=== PATIENT | female | born 1950 | race African-American/Black ===

== ENCOUNTER 2018-01-27 11:42 | Outpatient (CLI) | payer MEDICARE, OTHER | END 2018-01-27 11:43 | disposition home or self-care (01) | LOC: BICRAD 11:42 | PROVIDERS: ATTEND Family Medicine | DX: J18.0 Bronchopneumonia, unspecified organism (principal); J98.4 Other disorders of lung | CPT/HCPCS: 71046 ==

== ENCOUNTER 2018-09-30 12:38 | Inpatient (IN) | payer MEDICARE, OTHER ==
[2018-09-30] MEDS ORDERED: Fentanyl 20 mcg/ml (100 ml CADD) IV PRN (12:56)
[2018-09-30 13:10] LABS: Hemoglobin 10.3 g/dL (12.0-16.0); Mean Corpuscular HGB CONC 30.8 g/dL (32.0-36.0); Mean Corpuscular Hemoglobin 24.9 pg (27.0-31.0); Mean Corpuscular Volume 80.9 fL (78.0-98.0); Mean Platelet Volume 8.3 fL (7.4-10.4); Platelet Count 233 thou/uL (130-400); RBC Distribution Width 15.5 % (11.5-14.5); Red Blood Cell (RBC) Count 4.16 mill/uL (4.20-5.40); White Blood Cell (WBC) Count 7.4 thou/uL (4.8-10.8)
[2018-09-30 13:15] LABS: INR-International Normal Ratio 1.1; PTT 23.4 SEC (22.9-36.1); Prothrombin Time 13.8 SEC (12.0-14.7)
[2018-09-30 13:17] LABS: Bilirubin Negative (Negative); Blood, Urine Large (Negative); Clarity CLEAR (Clear); Glucose, Urine (Dipstick) 250 mg/dL (Negative); Leukocyte Negative (Negative); Nitrite Negative (Negative); Protein, Urine (Dipstick) 100 mg/dL (Neg-Trace)
[2018-09-30 13:20] LABS: Bacteria/HPF None Seen HPF (None Seen); Hyaline Casts/LPF 0-3 HYALINE CAST LPF (0-3 Hyaline); Pathc Cast-AUWi Flag 0.14 (0-2.49); RBC/HPF 0-3 HPF (0-3); Squamous Epithelial 0-3 HPF (0-3); WBC/HPF 0-3 HPF (0-3)
[2018-09-30] MEDS ORDERED: Fentanyl 100 MCG/2 ML VIAL ONE (13:21)
[2018-09-30 13:24] LABS: D-Dimer Test 4.25 *mcg/mL (0.27-0.43)
[2018-09-30 13:28] LABS: Amphetamine Not Detected (NotDetected); Barbiturates Screen Not Detected (NotDetected); Benzodiazepine Screen Not Detected (NotDetected); Cocaine Metabolite Screen Not Detected (NotDetected); Medtox Control Line Valid? VALID (VALID); Medtox Reader # READER 4; Methadone Not Detected (NotDetected); Methamphetamine Not Detected (NotDetected); Opiate Screen Detected (NotDetected); Oxycodone Screen Not Detected (NotDetected); Phencyclidine (PCP) Not Detected (NotDetected); Renal Epithelial None Seen HPF (0-3); THC/Cannabinoid Screen Not Detected (NotDetected); Transitional Epithelial NONE SEEN HPF (0-3); Tricyclic Screen Not Detected (NotDetected)
[2018-09-30 13:29] LABS: Magnesium 1.8 mg/dL (1.6-2.6); Phosphorus 2.8 mg/dL (2.3-4.7)
[2018-09-30 13:30] LABS: Acanthocytes SLIGHT = 1-5 cells (100X) (None Seen); Anisocytosis SLIGHT = 6-15 cells (100X) (0-5/hpf); Band 4 % (5-11); Elliptocytes SLIGHT = 2-5 cells (100X) (0-1/hpf); Hypochromia SLIGHT = 6-15 cells (100X) (0-5/hpf); Lymphocytes 4 % (21-51); MDiff Complete? YES; Monocytes 2 % (0-10); Neutrophil 90 % (42-75); Platelet Morphology Comment Appears Adequate
[2018-09-30 13:30] LABS: Actual Bicarbonate (HCO3a) 23.2 mEq/L (22-28); Analyzer IN Cardio ER; Base Excess (BEa) -1.8 mEq/L (-2.0 to +3.0); CO2 Tension 40.6 mmHg (35.0-45.0); Calcium, Ionized 1.12 mmol/L (1.12-1.30); Carboxyhemoglobin (COHb) 1.4 gm% (0.0-3.0); Hemoglobin (Hb) 12.2 g/dL (12.0-16.0); Potassium - ABG Lab 3.21 mmol/L (3.70-5.30); pH, Arterial 7.38 (7.35-7.45)
[2018-09-30 13:32] LABS: ALT (SGPT) 13 U/L (8-55); AST (SGOT) 27 U/L (5-34); Albumin 4.4 g/dL (3.4-4.8); Alkaline Phosphatase 128 U/L (40-150); Anion Gap 17 mmol/L (10-20); BUN (Urea Nitrogen) 8 mg/dL (9.8-20.1); Bilirubin, Total 0.5 mg/dL (0.2-1.2); CK (CPK) 726 U/L (29-168); Calc. Creatinine Clearance 0 mL/min (70-130); Calcium 9.3 mg/dL (7.8-10.44); Carbon Dioxide 22 mmol/L (23-31); Chloride 102 mmol/L (98-107); Estimated GFR-MDRD Greater than 90; Globulin 4.4 g/dL (2.4-3.5); Glucose 186 mg/dL (80-115); Lipase 12 U/L (8-78); Potassium 3.2 mmol/L (3.5-5.1); Protein, Total 8.8 g/dL (6.0-8.3); Sodium 138 mmol/L (136-145)
[2018-09-30 13:39] LABS: Puncture Site L.R.
--- NOTE | 2018-09-30 13:39 | CT ---
CT BRAIN: Date: 09-30-18 Provided Clinical History: Unresponsive. FINDINGS: Comparison is made with the study dated 02-21-06. There is a large intraaxial hematoma centered in the region of the left basal ganglia measuring appro ximately 6.6 cm in greatest transverse dimension. There is intraventricular extension. There is about 1.1 cm of left to right shift of the midline structures. There is associated left uncal herniation. There is prominence of the ventricular system suggesting developing hydrocephalus. Diminished attenua tion within the white matter about the occipital horns of both lateral ventricles may reflect transep endymal flow of CSF or vasogenic edema. The extracranial soft tissues and osseous structures demonstrate an unremarkable CT appearance. IMPRESSION: Large left basal ganglia intraparenchymal hematoma with intraventricular extension and findings sugge sting developing hydrocephalus. Findings communicated to Dr. Rajan in the Emergency Department at 1:1 5 p.m. 09-30-18. Code CR. POS: [facility]
[2018-09-30 13:41] LABS: Acetaminophen Less than 6.0 mcg/mL (10.0-30.0); Alcohol Less than 10 mg/dL (Less than 10); Salicylate Less than 8.0 mg/dL (15.0-30.0)
[2018-09-30] MEDS ORDERED: CCU Electrolyte Replacement 1 EACH IVPB ONE (13:42)
[2018-09-30] MEDS ORDERED: Ondansetron PF 4 MG/2 ML Vial IVP PRN (13:42)
[2018-09-30] MEDS ORDERED: Bisacodyl 10 MG SUPP PR PRN (13:42)
--- NOTE | 2018-09-30 13:43 | CT ---
CT CERVICAL SPINE: Technique: Multiple contiguous axial images were obtained through the cervical spine with multiplanar reconstructions. Indications: Patient was found unresponsive. Possible CVA. Question head and neck injury. FINDINGS: The cervical vertebrae maintain height and alignment. Moderate degenerative changes are noted. Loss o f disc space with hypertrophic degenerative changes seen throughout the cervical spine. Spondylosis i mpinges upon the cord at C4-5, C5-6, and C6-7 levels with foraminal encroachment at these levels. No evidence of acute fracture. ET tube is noted in place. There is prominence of the pharyngeal tonsils with evidence of edema at th is site, possibly related to ET tube placement. IMPRESSION: 1. Degenerative changes cervical spine. 2. No acute cervical spine fracture identified. POS: [facility]
[2018-09-30] MEDS ORDERED: Potassium Chloride 40 MEQ in Sodium Chloride 0.9% 250 ML 250 ML IVPB PRN (13:53)
[2018-09-30] MEDS ORDERED: Potassium Chloride 20 MEQ TAB PO PRN (13:53)
[2018-09-30] MEDS ORDERED: Potassium Phosphate 12 MMOL in Sodium Chloride 0.9% 250 ML 250 ML IV PRN (13:53)
[2018-09-30] MEDS ORDERED: Potassium Phosphate 9 MMOL in Sodium Chloride 0.9% 100 ML IVPB PRN (13:53)
[2018-09-30] MEDS ORDERED: Potassium Phosphate 15 MMOL in Sodium Chloride 0.9% 250 ML 250 ML IV PRN (13:53)
[2018-09-30] MEDS ORDERED: Magnesium Oxide 400 MG TAB PO PRN ×2 (13:53)
[2018-09-30] MEDS ORDERED: Potassium Chloride 40 MEQ in Premix Bag 1 BAG IVPB PRN (13:53)
[2018-09-30] MEDS ORDERED: Magnesium 2 GM/NS 0.9% 100 ML 2 GM in Premix Bag 1 BAG IVPB PRN (13:53)
[2018-09-30] MEDS ORDERED: CCU ELECTROLYTE REPLACEMENT PROTOCOL FS PRN (13:53)
--- NOTE | 2018-09-30 14:08 | RAD ---
PORTABLE CHEST: Date: 09/30/18 PROVIDED CLINICAL HISTORY: Altered mental status. FINDINGS: No comparison. Enteric catheter is noted, tip of which overlies the left upper quadrant. Endotracheal tube is seen, tip of which overlies the thoracic inlet. Cardiac silhouette appears upper limits of normal to mildly enlarged. Poor definition to the left hemidiaphragm. The lungs are hypoinflated, limiting assessment . Pleural fluid and pneumothorax is not definitely apparent with limitations given the supine nature of the study. IMPRESSION: Lines and tubes as above. POS: [facility]
[2018-09-30] MEDS ORDERED: manNITOL 20% 500 ML ONE (14:16)
[2018-09-30] MEDS ORDERED: niCARdipine 20MG In NaCl 20 MG/200 ML BAG ONE (14:27)
[2018-09-30] MEDS ORDERED: levETIRAcetam In NaCl (Iso-Os) 1,000 MG in Premix Bag 1 BAG IVPB ONE (14:30)
--- NOTE | 2018-09-30 15:17 | CT ---
CT ANGIOGRAM HEAD: HISTORY: Intracranial hemorrhage noted on noncontrast head CT. Altered mental status. COMPARISON: 09/30/2018 at 1:10 p.m. TECHNIQUE: A CT angiogram of the head is performed in the axial plane. Three-dimensional reformatted images are submitted for interpretation. FINDINGS: Re-demonstration of extensive intracranial hemorrhage. A large hematoma in the left temporal lobe is again demonstrated and measures 7.2 x 2.8 cm. There is associated peripheral edema. There is exten april of blood into the ventricular system, as well as the subarachnoid space. There is worsening lef t to right subfalcine herniation of approximately 1.3 cm. There is mass effect upon the left ventric le. There is some loss of singh white matter differentiation in the left temporal lobe. CT angiogram shows symmetric enhancement in the luminal diameter in the distal cervical and intracran ial internal carotid arteries. Atherosclerosis of both cavernous carotid arteries is noted. Anterior circulation shows appropriate enhancement and luminal diameter of both M1 and A1 segments. The proximal A2 segments and the proximal MCA branches have appropriate enhancement and luminal diame ter. The distal cervical and intracranial vertebral arteries have appropriate enhancement and luminal diam eter. The left PICA origin is unremarkable. The right PICA origin is not appreciated. Both vertebr al arteries supply a normal caliber basilar artery. Both P1 segments have symmetric enhancement and luminal diameter. IMPRESSION: 1. No evidence of aneurysm at the level of the [place]. 2. Extensive intracranial hemorrhage. 3. Worsening left to right subfalcine herniation. The results of the study were discussed with Dr. Rajan on 09/30/2018 at 2:29 p.m. CODE CR POS: [facility]
[2018-09-30] MEDS ORDERED: ISOVUE-370 76%-LOCM 1 ML ONE (15:30)
--- NOTE | 2018-09-30 16:29 | HP ---
HISTORY OF PRESENT ILLNESS: Ms. Brice is a 67-year-old woman, who has presented to the emergency department at [facility] by way of EMS after being found down at home and unresponsive. She was intubated on the scene. At no point according to emergency personnel, [facility] staff, did she ever regain consciousness and start to respond. CT scan was performed in the department that shows extraordinarily large left-sided intracerebral hemorrhage encompassing much of the frontal and temporal lobes with 1.1 cm midline shift with diffuse intraventricular hemorrhage with near total casting of the left lateral ventricle and the 4th ventricle. There is some expansion of the ventricular system, but I do not have a baseline comparison. At bedside, the patient is intubated. She does not have a corneal reflex, but does maintain a cough and gag reflex. Her pupils are equally round, but nonreactive to light. They both measure roughly 3 mm in size. She has traumatic laceration to the periorbital region on the right side, which does obscure some of my examination secondary to presence of blood around the eye. She does not respond to any pain stimulus or with greater GCS of 3T. Paralytics were given roughly 45 minutes because it was possible that she is still under the effects of these and thus I have an obscured neurologic examination. According to family, she does not take any blood thinning medications nor has any major medical history. There also was a CT angiogram performed in the department ordered by the emergency room personnel that shows no presence of any vascular abnormality. Neurosurgery is planning to admit her to the ICU with close neurologic examination. Head of bed elevated to 30 degrees, systolic blood pressure below 160. We will repeat a CT scan later today. She received one dose of mannitol in the department, dosed at 1 g/kg. We will hold any additional doses and we will also hold sedation until we get a better neurologic examination or at least understanding of her neurologic status, once we are certain that she has been free of any sedative and paralytic agents. I did discuss at length with family at bedside, this likely represents a fatal hemorrhage being that it is quite large in size, the degree of midline shift, and the presence in the dominant hemisphere. Family is understanding, albeit distraught. We will plan to admit her tonight and follow up in the morning. Job ID: [id number]
[2018-09-30 17:17] LABS: Lactic Acid 3.4 mmol/L (0.5-2.2)
[2018-09-30] MEDS: Sodium Chloride 0.9% 1,000 ML IV SCH (18:38)
[2018-09-30] MEDS: niCARdipine HCl 25 MG in Sodium Chloride 0.9% 250 ML 240 ML IVPB PRN (19:47)
[2018-09-30 19:57] LABS: Anion Gap 17 mmol/L (10-20); BUN (Urea Nitrogen) 6 mg/dL (9.8-20.1); Calc. Creatinine Clearance 164 mL/min (70-130); Carbon Dioxide 22 mmol/L (23-31); Chloride 101 mmol/L (98-107); Estimated GFR-MDRD Greater than 90; Glucose 156 mg/dL (80-115); Potassium 3.8 mmol/L (3.5-5.1); Sodium 136 mmol/L (136-145)
--- NOTE | 2018-09-30 20:57 | CT ---
CT OF BRAIN PERFORMED WITHOUT CONTRAST ENHANCEMENT: 09/30/18 HISTORY: Followup of intracerebral hemorrhage. COMPARISON: Earlier exam done today. A large intraparenchymal hemorrhage in the left middle cerebral artery distribution is again demonstr ated. The size of this appears unchanged. Extensive interventricular blood particularly in the left l ateral ventricle is noted. The left lateral ventricle is noted. The ventricular dilatation and shift of midline structures to the right all appear stable. Blood is seen in the ventricular system to the fourth ventricle level. Decreased attenuation of the periventricular white matter particularly solutions engineer iorly is stable. IMPRESSION: Stable overall examination. No significant change in the intraparenchymal and intraventricular blood or mass effect. POS: [facility]
[2018-09-30] MEDS: Famotidine/PF 20 mg/2ml Vial SLOW IVP SCH (21:08)
[2018-09-30] MEDS ORDERED: Mannitol 12.5 GM/50 ML SLOW IVP SCH (23:15)
[2018-10-01] MEDS: niCARdipine HCl 25 MG in Sodium Chloride 0.9% 250 ML 240 ML IVPB PRN ×4 (02:05→17:04)
[2018-10-01] MEDS: Sodium Chloride 0.9% 1,000 ML IV SCH ×3 (05:08→19:39)
[2018-10-01] MEDS: Mannitol 12.5 GM/50 ML SLOW IVP SCH ×3 (05:32→21:33)
[2018-10-01 05:56] LABS: Anion Gap 13 mmol/L (10-20); BUN (Urea Nitrogen) 6 mg/dL (9.8-20.1); Calc. Creatinine Clearance 173 mL/min (70-130); Carbon Dioxide 24 mmol/L (23-31); Chloride 104 mmol/L (98-107); Estimated GFR-MDRD Greater than 90; Glucose 158 mg/dL (80-115); Potassium 3.3 mmol/L (3.5-5.1); Sodium 138 mmol/L (136-145)
[2018-10-01 08:26] LABS: Actual Bicarbonate (HCO3a) 25.4 mEq/L (22-28); Base Excess (BEa) 2.8 mEq/L (-2.0 to +3.0); CO2 Tension 32.7 mmHg (35.0-45.0); Calcium, Ionized 1.14 mmol/L (1.12-1.30); Carboxyhemoglobin (COHb) 1.5 gm% (0.0-3.0); O2 Tension (PaO2) 107.7 mmHg (> 80.0); Potassium - ABG Lab 3.32 mmol/L (3.70-5.30); pH, Arterial 7.51 (7.35-7.45)
[2018-10-01 08:33] LABS: ALV-art Gradient 207.925 (0-20); Puncture Site RRA
[2018-10-01] MEDS ORDERED: Prevnar 13-Val Conj/PF 0.5 ML SYRINGE IM ONE (09:00)
[2018-10-01] MEDS: Famotidine/PF 20 mg/2ml Vial SLOW IVP SCH ×2 (09:21→21:33)
--- NOTE | 2018-10-01 09:52 | CON ---
DATE OF CONSULTATION: HISTORY OF PRESENT ILLNESS: This is a 67-year-old female, who was found down at home. Apparently, was in the dialysis center, and she did not go to pick him up. Son went to the house and found her down. She had agonal respirations. The sats were 80%. Apparently, there was some concern that she could have hit her head following the CVA. She was intubated and transferred to the [facility], where a CAT scan shows a very large area of intracerebral hemorrhage. I spoke with the son at length, who states the patient is very active former smoker, quit smoking in 80s. No alcohol abuse. She sees . PAST MEDICAL HISTORY: Pertinent for; 1. Hypertension. 2. Previous mini-stroke. 3. History of lupus. 4. History of arthritis. PAST SURGICAL HISTORY: Including; 1. Gastric bypass for weight loss. 2. Splenectomy. 3. Knee surgery. 4. Hip surgery. 5. Wrist surgery. 6. Back surgery. 7. Cholecystectomy. MEDICATIONS: Apparently, her medicine at home includes; 1. Detrol 2 mg twice a day. 2. Catapres patch every 7 days. ALLERGIES: NO ALLERGIES. SOCIAL AND FAMILY HISTORY: She takes care of her . As noted, alcohol none. Tobacco, former. She is on a nicardipine drip. PHYSICAL EXAMINATION: VITAL SIGNS: Blood pressure is 130/70, sats are 100%, pulse 80, and respirations 18. CHEST: Decreased breath sounds. No wheezing. CARDIAC: Normal S1 and S2. No gallops. ABDOMEN: Soft. NEUROLOGIC: Pupils are equal. Unresponsive. LABORATORY DATA: PO2 is 107, pCO2 of 32, . Her lytes are normal. Potassium 3.3. CT brain shows a large left basal ganglia, intraparenchymal hemorrhage, hematoma with intraventricular extension suggestive of developing hydrocephalus. There is no source of a bleed like an aneurysm. Chest x-ray did not show any acute infiltrates. There was some left-sided retrocardiac density, probably pleural effusion. IMPRESSION: 1. Status post intracerebral hemorrhage. 2. Hypertension. 3. Lupus. PLAN: At this stage, continue supportive care. Await input from Neurosurgery. Prognosis remains guarded. This is a 45-minute critical care time. Job ID: [id number]
--- NOTE | 2018-10-01 11:18 | PRG ---
DATE OF SERVICE: 10/01/2018 SUBJECTIVE: Ms. Brice has suffered an extraordinarily unfortunate hemorrhage in the left dominant hemisphere of the brain. She per the family has continued to be mostly unresponsive. Pupils are fixed at 3 mm, nonreactive to light. She does continues to not have corneal reflex, but she maintains gag and cough. She has been started on mannitol, per me at bedside, it appears that she may be following commands, particularly with the left foot as she will press against my hand on command and then when I push against her foot, but do not ask, she does not push against me. I attempted this at least 6 to 7 times and had the same result. I did not get any response of her upper extremities, nor do I get any localization or even withdraw from pain. If anything I have, she does have some posturing to deep stimuli. I still feel that this represents a difficult and very poor prognosis, but the family remains optimistic. We will continue with mannitol and conservative therapy. Job ID: [id number]
--- NOTE | 2018-10-01 12:23 | PRG ---
DATE OF SERVICE: 10/01/2018 SUBJECTIVE: Ms. Brice was admitted yesterday with a very large left-sided intracerebral and intraventricular hemorrhage with associated midline shift. She is currently in the ICU, intubated. She does produce spontaneous movements. There has been some question as whether or not she follows commands with her foot. She is currently on mannitol and will remain on scheduled mannitol. There is no neurosurgical plan for operative intervention. I met with her 2 sons, [id number], and in the room today. I did relay to them this is a very serious hemorrhage and is a life-threatening hemorrhage and may very well be a terminal event for her. PLAN: The plan will be ongoing nonsurgical management. We will continue to update the family with respect to treatment plan as we move forward. Job ID: [id number]
[2018-10-01 12:56] LABS: Anion Gap 13 mmol/L (10-20); BUN (Urea Nitrogen) 7 mg/dL (9.8-20.1); Calc. Creatinine Clearance 171 mL/min (70-130); Calcium 9.1 mg/dL (7.8-10.44); Carbon Dioxide 24 mmol/L (23-31); Chloride 105 mmol/L (98-107); Estimated GFR-MDRD Greater than 90; Glucose 136 mg/dL (80-115); Potassium 3.8 mmol/L (3.5-5.1); Sodium 138 mmol/L (136-145)
[2018-10-01] MEDS ORDERED: cloNIDine 0.3mg/24 Hour PATCH TD SCH ×2 (14:08→15:00)
--- NOTE | 2018-10-01 14:11 | PDOC.PN ---
- Subjective Encounter Start Date: 10/01/18 Encounter Start Time: 14:09 Subjective: Pt seen & examined.care discussed w family at bedside -: Chart reviewed in detail -: Pt found unresponsive @ home & CT brain showed Large Left ICH - Objective MAR Reviewed: Yes Vital Signs & Weight: Vital Signs (12 hours) Temp Pulse Resp BP 10/01/18 12:02 97 161/93 H 10/01/18 08:46 95 182/85 H 10/01/18 06:00 16 10/01/18 04:00 99.6 F 16 10/01/18 02:13 94 Weight Weight 254 lb 13.67 oz Most Recent Monitor Data Heart Rate from ECG 76 NIBP 174/94 NIBP BP-Mean 120 Respiration from ECG 23 SpO2 96 I&O: 09/30/18 10/01/18 10/02/18 06:59 06:59 06:59 Intake Total 1864.0 Output Total 6155 Balance -4291.0 Result Diagrams: 09/30/18 12:49 10/01/18 12:29 Radiology Reviewed by me: Yes (CT-large left basal ganglia ICH w interventricular extension/herniation) Phys Exam - Physical Examination Constitutional: NAD intubated.unresponsive w some spontanous movements of shoulder & foot HEENT: moist MMs, oral pharynx no lesions ETT.+gag and cough per RN.no corneal.pupils fixed Neck: no nodes, no JVD Respiratory: no wheezing, no rales, no rhonchi Cardiovascular: RRR, no significant murmur Gastrointestinal: soft, no distention, positive bowel sounds Musculoskeletal: no edema non purposeful movements of Left foot & left shoulder Skin: no rash Dx/Plan (1) ICH (intracerebral hemorrhage) Code(s): I61.9 - NONTRAUMATIC INTRACEREBRAL HEMORRHAGE, UNSPECIFIED Status: Acute (2) Acute respiratory failure requiring reintubation Code(s): J96.00 - ACUTE RESPIRATORY FAILURE, UNSP W HYPOXIA OR HYPERCAPNIA Status: Acute (3) Unresponsiveness Status: Acute (4) HTN (hypertension) Code(s): I10 - ESSENTIAL (PRIMARY) HYPERTENSION Status: Chronic (5) Microcytic hypochromic anemia Code(s): D50.9 - IRON DEFICIENCY ANEMIA, UNSPECIFIED Status: Chronic - Plan plan discussed w/ family, bustillos catheter, respiratory therapy, DVT proph w/SCDs Conservative management.Mannitol per primary team -: serial CT brain. -: Cont nicardipine drip.add [facility] vasotec & restart clonidine patch/Add prns -: Poor prognosis. Vent managemet per [facility] -: AM labs.supportive care. IM team will follow * . Review of Systems - Review of Systems Other: can not be obtained as she is intubated and unresponsive - Medications/Allergies Allergies/Adverse Reactions: Allergies Allergy/AdvReac Type Severity Reaction Status Date / Time No Known Allergies Allergy Verified 09/30/18 18:08 Medications: Current Medications Bisacodyl (Dulcolax) 10 mg [place] DAILYPRN PRN PRN Reason: Constipation Clonidine (Twbxzyjp-Sfq-2) mg TD Q7DAYS [facility] Enalaprilat (Vasotec) 1.25 mg SLOW IVP Q6HR [facility] Famotidine (Pepcid) 20 mg SLOW IVP Q12HR [facility] Last Admin: 10/01/18 09:21 Dose: 20 mg Hydralazine HCl (Apresoline) 10 mg SLOW IVP Q4H PRN PRN Reason: SBP>170 Fentanyl Citrate 2,000 mcg/ (Sodium Chloride) 100 mls @ 0 mls/hr IV INF PRN PRN Reason: Pain Nicardipine HCl 25 mg/ Sodium (Chloride) 250 mls @ 0 mls/hr IVPB INF PRN; Protocol PRN Reason: SBP > 160 or DBP > 90 Last Admin: 10/01/18 12:08 Dose: 250 mls Sodium Chloride (Normal Saline 0.9%) 1,000 mls @ 100 mls/hr IV .Q10H [facility] Last Admin: 10/01/18 10:00 Dose: 1,000 mls Potassium Chloride 40 meq/ (Sodium Chloride) 270 mls @ 135 mls/hr IVPB ASDIR PRN PRN Reason: FOR SERUM K+ 2.5 - 3.5 Potassium Chloride 40 meq/ (Device) 100 mls @ 50 mls/hr IVPB ASDIR PRN PRN Reason: FOR SERUM K+ 2.5 - 3.5 Magnesium Sulfate 1 gm/ Sodium (Chloride) 102 mls @ 102 mls/hr IV PRN PRN PRN Reason: MAG LEVEL 1.4 - 2.0 Magnesium Sulfate 2 gm/ Device 100 mls @ 100 mls/hr IVPB ASDIR PRN PRN Reason: MAGNESIUM < 1.4 Potassium Phosphate 9 mmol/ (Sodium Chloride) 103 mls @ 25.75 mls/hr IVPB ASDIR PRN PRN Reason: Phosphate 1.0-1.8 Potassium Phosphate 12 mmol/ (Sodium Chloride) 254 mls @ 63.5 mls/hr IV ASDIR PRN PRN Reason: Serum phosphate 0.5-0.9 Potassium Phosphate 15 mmol/ (Sodium Chloride) 255 mls @ 63.75 mls/hr IV ASDIR PRN PRN Reason: Serum Phos < 0.5 Labetalol HCl (Normodyne) 10 mg SLOW IVP Q4H PRN PRN Reason: SBP Greater Than 180 Magnesium Oxide (Magnesium Oxide) 400 mg PO BIDPRN PRN PRN Reason: FOR SERUM MAG 1.4 - 2.0 Magnesium Oxide (Magnesium Oxide) 800 mg PO PRN PRN PRN Reason: FOR SERUM MAG < 1.4 Mannitol (Mannitol) 25 gm SLOW IVP Q8HR [facility] Last Admin: 10/01/18 05:32 Dose: 25 gm Miscellaneous Medication (Phos-Nak) 1 pkt PO TIDPRN PRN PRN Reason: FOR PHOS LEVEL 1.0 - 1.8 Miscellaneous Medication (Phos-Nak) 2 pkt PO TIDPRN PRN PRN Reason: FOR PHOS LEVEL 0.5 - 1.0 Ccu Electrolyte (Replacement Protocol) 0 each FS PRN PRN PRN Reason: FOR ELECTROLYTE REPLACEMENT Ondansetron HCl (Zofran) 4 mg IVP Q6H PRN PRN Reason: Nausea/Vomiting Potassium Chloride (K-Dur) 40 meq PO ASDIR PRN PRN Reason: FOR SERUM K+ 2.5 - 3.5 Potassium Chloride (Klor-Con) 40 meq PER TUBE ASDIR PRN PRN Reason: FOR SERUM K+ 2.5-3.5 Last Admin: 10/01/18 10:12 Dose: 40 meq Sodium Chloride (Flush - Normal Saline) 10 ml IVF PRN PRN PRN Reason: Saline Flush
[2018-10-01] MEDS: Enalaprilat Dihydrate 1.25 MG/ML VIAL SLOW IVP SCH (18:34)
[2018-10-01 20:50] LABS: Anion Gap 13 mmol/L (10-20); BUN (Urea Nitrogen) 8 mg/dL (9.8-20.1); Calc. Creatinine Clearance 180 mL/min (70-130); Calcium 8.7 mg/dL (7.8-10.44); Carbon Dioxide 22 mmol/L (23-31); Chloride 105 mmol/L (98-107); Estimated GFR-MDRD Greater than 90; Glucose 130 mg/dL (80-115); Potassium 3.4 mmol/L (3.5-5.1); Sodium 137 mmol/L (136-145)
[2018-10-02] MEDS: Enalaprilat Dihydrate 1.25 MG/ML VIAL SLOW IVP SCH ×4 (01:03→17:38)
[2018-10-02 04:58] LABS: #Lymphocytes 0.9 thou/uL (1.20-3.40); #Monocytes 1.2 thou/uL (0.11-0.59); #Neutrophils 11.2 thou/uL (1.40-6.50); %Basophils 0.2 % (0.0-1.0); %Eosinophils 0.1 % (0.0-10.0); %Lymphocytes 6.5 % (21.0-51.0); %Monocytes 8.6 % (0.0-10.0); %Neutrophils 84.6 % (42.0-75.0); Mean Corpuscular HGB CONC 31.1 g/dL (32.0-36.0); Mean Corpuscular Hemoglobin 24.5 pg (27.0-31.0); Mean Platelet Volume 8.6 fL (7.4-10.4); Platelet Count 266 thou/uL (130-400); RBC Distribution Width 15.5 % (11.5-14.5); Red Blood Cell (RBC) Count 4.91 mill/uL (4.20-5.40); White Blood Cell (WBC) Count 13.3 thou/uL (4.8-10.8)
[2018-10-02 05:20] LABS: Anion Gap 12 mmol/L (10-20); BUN (Urea Nitrogen) 9 mg/dL (9.8-20.1); Calc. Creatinine Clearance 183 mL/min (70-130); Calcium 8.3 mg/dL (7.8-10.44); Carbon Dioxide 22 mmol/L (23-31); Chloride 109 mmol/L (98-107); Estimated GFR-MDRD Greater than 90; Glucose 114 mg/dL (80-115); Potassium 3.1 mmol/L (3.5-5.1); Sodium 140 mmol/L (136-145)
[2018-10-02] MEDS: Mannitol 12.5 GM/50 ML SLOW IVP SCH ×2 (06:16→15:30)
[2018-10-02] MEDS: Sodium Chloride 0.9% 1,000 ML IV SCH ×3 (06:16→19:29)
[2018-10-02] MEDS: Famotidine/PF 20 mg/2ml Vial SLOW IVP SCH ×2 (08:16→20:10)
[2018-10-02 08:35] LABS: Actual Bicarbonate (HCO3a) 23.5 mEq/L (22-28); Base Excess (BEa) 0.9 mEq/L (-2.0 to +3.0); CO2 Tension 31.6 mmHg (35.0-45.0); Calcium, Ionized 1.14 mmol/L (1.12-1.30); Carboxyhemoglobin (COHb) 1.6 gm% (0.0-3.0); Hemoglobin (Hb) 12.9 g/dL (12.0-16.0); O2 Tension (PaO2) 97.3 mmHg (> 80.0); Potassium - ABG Lab 3.18 mmol/L (3.70-5.30); pH, Arterial 7.49 (7.35-7.45)
[2018-10-02] MEDS: niCARdipine HCl 25 MG in Sodium Chloride 0.9% 250 ML 240 ML IVPB PRN ×3 (09:03→19:26)
[2018-10-02 09:06] LABS: Puncture Site RRA
--- NOTE | 2018-10-02 09:15 | PRG ---
DATE OF SERVICE: 10/02/2018 SUBJECTIVE: Laura Brice remains intubated in the vent, unresponsive. OBJECTIVE: VITAL SIGNS: Pupils are 2 mm, reacting respiratory rate is 28, temperature 99, blood pressure 149/89, sats are 98%. I's and O's are 3862 in, 3710 out. CHEST: Decreased breath sounds. Minimal rhonchi. CARDIAC: Normal S1, S2. No gallop or mass. NEUROLOGIC: Unresponsive. LABORATORY DATA: Potassium is 3. Otherwise, serum osmolarity is 299. White count 13,000. DIAGNOSTIC DATA: Chest x-ray shows no obvious infiltrate. IMPRESSION: Massive intracerebral hemorrhage. Probably hypertensive. Input as per Neurosurgery. She is on mannitol blood pressure medication as outlined. Prognosis is grave. We will follow one-half hour critical time. Job ID: [id number]
--- NOTE | 2018-10-02 09:51 | RAD ---
PORTABLE UPRIGHT FRONTAL CHEST: Date: 10/02/18 COMPARISON: 09/30/18. HISTORY: Ventilated patient. FINDINGS: Stable endotracheal tube and nasogastric tube. Stable bilateral hilar prominence suggests vascular pr ominence. No pneumothorax, pleural fluid, focal consolidation, or alveolar edema. IMPRESSION: No significant interval change. POS: [facility]
--- NOTE | 2018-10-02 10:37 | PDOC.PN ---
- Subjective Encounter Start Date: 10/02/18 Encounter Start Time: 10:35 Subjective: no changes since yesterday.remians comatose/unresponsive -: care discussed w RN-preserved cough/gag & breathes over vent - Objective MAR Reviewed: Yes Vital Signs & Weight: Vital Signs (12 hours) Temp Pulse Resp BP Pulse Ox 10/02/18 10:27 104 H 158/96 H 10/02/18 10:00 28 H 10/02/18 08:00 99.4 F 28 H 97 10/02/18 06:18 170/92 H 10/02/18 06:00 24 H 10/02/18 04:00 99.8 F H 24 H 10/02/18 02:05 104 H 10/02/18 02:00 21 H 10/02/18 01:03 170/92 H 10/02/18 00:00 99.1 F 10/01/18 22:40 106 H Weight Admit Weight 254 lb 13.67 oz Weight 256 lb 12.8 oz Most Recent Monitor Data Heart Rate from ECG 107 NIBP 158/98 NIBP BP-Mean 118 Respiration from ECG 25 SpO2 97 I&O: 10/01/18 10/02/18 10/03/18 06:59 06:59 06:59 Intake Total 1864.0 3862 Output Total 6155 3710 455 Balance -4291.0 152 -455 Result Diagrams: 10/02/18 04:12 10/02/18 04:12 Additional Labs: Microbiology 09/30/18 14:15 Nasal swab Influenza Types A,B Direct EIA - Final 09/30/18 14:41 Venous blood - Right Arm Blood Culture - Preliminary Specimen has been received and culture in progress. No Growth to date. 09/30/18 12:49 Venous blood - Right Hand Blood Culture - Preliminary Specimen has been received and culture in progress. No Growth to date. 09/30/18 12:49 Urine bustillos catheter Urine Culture - Preliminary NO GROWTH AT 24 HOURS Phys Exam - Physical Examination Constitutional: NAD intubated.unresponsive to pain & other stimuli HEENT: moist MMs, sclera anicteric No corneal.pupils fixed Neck: no nodes, no JVD Respiratory: no wheezing, no rales Cardiovascular: RRR systolic murmur Gastrointestinal: soft, no distention Musculoskeletal: no edema, pulses present obtunded Dx/Plan (1) ICH (intracerebral hemorrhage) Code(s): I61.9 - NONTRAUMATIC INTRACEREBRAL HEMORRHAGE, UNSPECIFIED Status: Acute (2) Acute respiratory failure requiring reintubation Code(s): J96.00 - ACUTE RESPIRATORY FAILURE, UNSP W HYPOXIA OR HYPERCAPNIA Status: Acute (3) Unresponsiveness Status: Acute (4) HTN (hypertension) Code(s): I10 - ESSENTIAL (PRIMARY) HYPERTENSION Status: Chronic (5) Microcytic hypochromic anemia Code(s): D50.9 - IRON DEFICIENCY ANEMIA, UNSPECIFIED Status: Chronic - Plan DVT proph w/SCDs supportive care.poor prognosis -: replace & recheck potassium per protocol -: Vent managmenet per PCCM. -: on Nicardipine drip and mannitol w BMP Q8hrs.conservative Mm -: restarted clonidine patch & IV Vasotec yesterday to lower BP. * .IM team will follow Review of Systems - Review of Systems Other: can not be obtained due to obtunded state - Medications/Allergies Allergies/Adverse Reactions: Allergies Allergy/AdvReac Type Severity Reaction Status Date / Time No Known Allergies Allergy Verified 09/30/18 18:08 Medications: Current Medications Bisacodyl (Dulcolax) 10 mg [place] DAILYPRN PRN PRN Reason: Constipation Clonidine (Ytidhzdy-Nqx-5) 0.3 mg TD Q7D [facility] Last Admin: 10/01/18 15:00 Dose: 0.3 mg Enalaprilat (Vasotec) 1.25 mg SLOW IVP Q6HR [facility] Last Admin: 10/02/18 06:18 Dose: 1.25 mg Famotidine (Pepcid) 20 mg SLOW IVP Q12HR [facility] Last Admin: 10/02/18 08:16 Dose: 20 mg Hydralazine HCl (Apresoline) 10 mg SLOW IVP Q4H PRN PRN Reason: SBP>170 Fentanyl Citrate 2,000 mcg/ (Sodium Chloride) 100 mls @ 0 mls/hr IV INF PRN PRN Reason: Pain Nicardipine HCl 25 mg/ Sodium (Chloride) 250 mls @ 0 mls/hr IVPB INF PRN; Protocol PRN Reason: SBP > 160 or DBP > 90 Last Admin: 10/02/18 09:03 Dose: 250 mls Sodium Chloride (Normal Saline 0.9%) 1,000 mls @ 100 mls/hr IV .Q10H [facility] Last Admin: 10/02/18 06:16 Dose: Not Given Potassium Chloride 40 meq/ (Sodium Chloride) 270 mls @ 135 mls/hr IVPB ASDIR PRN PRN Reason: FOR SERUM K+ 2.5 - 3.5 Potassium Chloride 40 meq/ (Device) 100 mls @ 50 mls/hr IVPB ASDIR PRN PRN Reason: FOR SERUM K+ 2.5 - 3.5 Magnesium Sulfate 1 gm/ Sodium (Chloride) 102 mls @ 102 mls/hr IV PRN PRN PRN Reason: MAG LEVEL 1.4 - 2.0 Magnesium Sulfate 2 gm/ Device 100 mls @ 100 mls/hr IVPB ASDIR PRN PRN Reason: MAGNESIUM < 1.4 Potassium Phosphate 9 mmol/ (Sodium Chloride) 103 mls @ 25.75 mls/hr IVPB ASDIR PRN PRN Reason: Phosphate 1.0-1.8 Potassium Phosphate 12 mmol/ (Sodium Chloride) 254 mls @ 63.5 mls/hr IV ASDIR PRN PRN Reason: Serum phosphate 0.5-0.9 Potassium Phosphate 15 mmol/ (Sodium Chloride) 255 mls @ 63.75 mls/hr IV ASDIR PRN PRN Reason: Serum Phos < 0.5 Labetalol HCl (Normodyne) 10 mg SLOW IVP Q4H PRN PRN Reason: SBP Greater Than 180 Magnesium Oxide (Magnesium Oxide) 400 mg PO BIDPRN PRN PRN Reason: FOR SERUM MAG 1.4 - 2.0 Magnesium Oxide (Magnesium Oxide) 800 mg PO PRN PRN PRN Reason: FOR SERUM MAG < 1.4 Mannitol (Mannitol) 25 gm SLOW IVP Q8HR [facility] Last Admin: 10/02/18 06:16 Dose: 25 gm Miscellaneous Medication (Phos-Nak) 1 pkt PO TIDPRN PRN PRN Reason: FOR PHOS LEVEL 1.0 - 1.8 Miscellaneous Medication (Phos-Nak) 2 pkt PO TIDPRN PRN PRN Reason: FOR PHOS LEVEL 0.5 - 1.0 Ccu Electrolyte (Replacement Protocol) 0 each FS PRN PRN PRN Reason: FOR ELECTROLYTE REPLACEMENT Ondansetron HCl (Zofran) 4 mg IVP Q6H PRN PRN Reason: Nausea/Vomiting Potassium Chloride (K-Dur) 40 meq PO ASDIR PRN PRN Reason: FOR SERUM K+ 2.5 - 3.5 Potassium Chloride (Klor-Con) 40 meq PER TUBE ASDIR PRN PRN Reason: FOR SERUM K+ 2.5-3.5 Last Admin: 10/01/18 10:12 Dose: 40 meq Sodium Chloride (Flush - Normal Saline) 10 ml IVF PRN PRN PRN Reason: Saline Flush
--- NOTE | 2018-10-02 11:47 | PRG ---
DATE OF SERVICE: 10/02/2018 SUBJECTIVE: Ms. Brice today remains unresponsive. She does overbreathe the vent. Retains a gag and cough reflex, but she does not have a corneal reflex. Her pupils are fixed at 4 mm and nonreactive. She has no response to pain. She does not follow commands. I continue to feel that this represents an extraordinarily poor prognosis. Job ID: [id number]
--- NOTE | 2018-10-02 12:07 | PRG ---
DATE OF SERVICE: 10/02/2018 SUBJECTIVE: Ms. Brice remains intubated in the ICU in critical condition from a large left-sided intracerebral hemorrhage. , but other than that has a very poor neurologic exam. I updated the family today and indicated to them I believe she has a very poor prognosis. PLAN: Our plan will be to give her another day and re-evaluate in the morning. I did have discussion with the family this morning regarding PEG and trach should they wish to continue with current level of care for the indefinite future. My suspicion is that Ms. Brice will not likely survive this hemorrhage. Job ID: [id number]
[2018-10-02] MEDS: hydrALAZINE 20 MG/ML VIAL SLOW IVP PRN (13:01)
[2018-10-02 13:44] LABS: Anion Gap 15 mmol/L (10-20); BUN (Urea Nitrogen) 10 mg/dL (9.8-20.1); Calc. Creatinine Clearance 184 mL/min (70-130); Calcium 8.4 mg/dL (7.8-10.44); Carbon Dioxide 20 mmol/L (23-31); Chloride 109 mmol/L (98-107); Estimated GFR-MDRD Greater than 90; Glucose 117 mg/dL (80-115); Potassium 3.2 mmol/L (3.5-5.1); Sodium 141 mmol/L (136-145)
[2018-10-02] MEDS: Labetalol HCl 100 MG/20 ML VIAL SLOW IVP PRN ×2 (13:44→17:34)
[2018-10-02] MEDS: Admixture Fee 1 EACH in manNITOL 20% 125 ML FS SCH ×2 (15:37→21:49)
[2018-10-02 21:40] LABS: Anion Gap 13 mmol/L (10-20); BUN (Urea Nitrogen) 10 mg/dL (9.8-20.1); Calc. Creatinine Clearance 184 mL/min (70-130); Calcium 8.2 mg/dL (7.8-10.44); Carbon Dioxide 20 mmol/L (23-31); Chloride 112 mmol/L (98-107); Estimated GFR-MDRD Greater than 90; Glucose 125 mg/dL (80-115); Potassium 3.5 mmol/L (3.5-5.1); Sodium 141 mmol/L (136-145)
[2018-10-02] MEDS ORDERED: manNITOL 20% 250 ML IVPB SCH (22:00)
[2018-10-03] MEDS: Enalaprilat Dihydrate 1.25 MG/ML VIAL SLOW IVP SCH ×4 (00:03→17:35)
[2018-10-03] MEDS: niCARdipine HCl 25 MG in Sodium Chloride 0.9% 250 ML 240 ML IVPB PRN ×2 (01:25→07:07)
[2018-10-03 05:20] LABS: #Monocytes 1.7 thou/uL (0.11-0.59); #Neutrophils 9.3 thou/uL (1.40-6.50); %Lymphocytes 8.4 % (21.0-51.0); %Monocytes 14.3 % (0.0-10.0); %Neutrophils 77.2 % (42.0-75.0); Hemoglobin 11.9 g/dL (12.0-16.0); Mean Corpuscular Hemoglobin 24.5 pg (27.0-31.0); Mean Platelet Volume 8.8 fL (7.4-10.4); Platelet Count 239 thou/uL (130-400); RBC Distribution Width 15.4 % (11.5-14.5); Red Blood Cell (RBC) Count 4.87 mill/uL (4.20-5.40); White Blood Cell (WBC) Count 12.1 thou/uL (4.8-10.8)
[2018-10-03 05:37] LABS: Anion Gap 12 mmol/L (10-20); BUN (Urea Nitrogen) 11 mg/dL (9.8-20.1); Calc. Creatinine Clearance 178 mL/min (70-130); Calcium 8.1 mg/dL (7.8-10.44); Carbon Dioxide 21 mmol/L (23-31); Chloride 112 mmol/L (98-107); Estimated GFR-MDRD Greater than 90; Glucose 119 mg/dL (80-115); Potassium 3.3 mmol/L (3.5-5.1); Sodium 142 mmol/L (136-145)
[2018-10-03] MEDS: Admixture Fee 1 EACH in manNITOL 20% 125 ML FS SCH ×3 (06:08→22:08)
[2018-10-03] MEDS: Sodium Chloride 0.9% 1,000 ML IV SCH ×2 (07:09→13:51)
[2018-10-03 07:42] LABS: Actual Bicarbonate (HCO3a) 23.6 mEq/L (22-28); Base Excess (BEa) 1.2 mEq/L (-2.0 to +3.0); CO2 Tension 30.9 mmHg (35.0-45.0); Calcium, Ionized 1.13 mmol/L (1.12-1.30); Carboxyhemoglobin (COHb) 1.4 gm% (0.0-3.0); Hemoglobin (Hb) 12.8 g/dL (12.0-16.0); O2 Tension (PaO2) 81.6 mmHg (> 80.0)
[2018-10-03 07:43] LABS: ALV-art Gradient 164.975 (0-20); Puncture Site RRA
[2018-10-03] MEDS: Famotidine/PF 20 mg/2ml Vial SLOW IVP SCH ×2 (08:58→21:20)
--- NOTE | 2018-10-03 09:46 | RAD ---
PORTABLE CHES 1 VIEW: Date: 10/03/18 Time: 0544 hours HISTORY: Respiratory failure. FINDINGS/IMPRESSION: Allowing for differences in technique and positioning of the patient, no significant interval change is seen since the previous day's exam. POS: KENNY
--- NOTE | 2018-10-03 11:09 | PDOC.EVN ---
Event Note - Event Note Event Note: ACP NOTE Pt seen and examined. Care discussed w one son/DIL and at bedside.Prognosis and plan discussed.As per recs from NS,the chances of meaningful recovery are minimal.Options include terminal extubation Vs Trach/ PEG and NH placement.Family made aware of both options and they will think about it. Later called by RN as another Son wanted to meet with MD Family meeting held in CCU conference room.Both sons,their SO and present with RN in room. Once again discussed the diagnosis,prognosis and options with all of them and all Qs answered.They are all in shock/denial and want me to transfer her to [facility] for second opinion.I advised strongly against it as pt is unstable and it is not indicated as it is not for higher level of care. Reassurances provided multiple times that she is getting all the care she needs here appropriately and the prognosis is very grim.Once again,options discussed and family is undecided. Meeting adjourned after all Qs were answered. Will consult Palliative care team for further family meetings. Will consult Neurology per family request to have full neurological exam and another opinion,even though i told them that most likely it will not change anything. TIME SPENT IN DISCUSSION AT BEDSIDE AND CONFERENCE ROOM 36 MINUTES. REMAINS FULL CODE
[2018-10-03] MEDS ORDERED: Potassium Chloride 20 MEQ TAB PO SCH (11:15)
--- NOTE | 2018-10-03 11:15 | PRG ---
DATE OF SERVICE: 10/03/2018 SERVICE: Pulmonary Medicine. INTERVAL HISTORY: The patient is doing fine from respiratory standpoint. There has been no interval change to her condition. Otherwise, she remains in critical condition on support with mechanical ventilator. She cannot provide any additional elements of the history because of her severe neurologic injury. Nursing reports no overnight events. PHYSICAL EXAMINATION: VITAL SIGNS: Afebrile with a T-max of 100.4, pulse 104, blood pressure 147/85, respirations 31, saturation 95% on 23% FiO2 and a PEEP of 5. GENERAL: The patient is intubated. She is on absolutely no sedation. HEENT: Normocephalic and atraumatic. Sclerae are white. Conjunctivae pink. Oral mucosa is moist without lesions. LUNGS: Excellent air entry. No prolonged expiratory phase or wheezing is appreciated. HEART: Normal rate regular. ABDOMEN: Soft, nontender, and nondistended. Bowel sounds are positive. MUSCULOSKELETAL: No cyanosis or clubbing. There is no pitting in the bilateral lower extremities. NEUROLOGIC: Pupils are nonresponsive with light. She is overbreathing the ventilator comfortably. She demonstrates a very poor cough with deep suctioning. With noxious stimuli to the bilateral upper and lower extremity, she has absolutely no withdrawal features. She demonstrates a crossed extensor reflex with the left lower extremity. LABORATORY DATA: WBC 12.1, hemoglobin 11.9, and platelets 239,000. Potassium 3.3. Basic metabolic profile is otherwise unremarkable. Urine drug screen is positive for opiates. BHB was unremarkable. Influenza A and B, blood cultures x2, and urine culture all unremarkable to date. IMAGING: Chest x-ray demonstrates no acute cardiopulmonary abnormality. Endotracheal tube remains in good position. Enteric catheter is identified coursing midline below the level of the diaphragm. ASSESSMENT: 1. Intracranial hemorrhage with mass effect, large. 2. Respiratory failure secondary to inability to protect airway. DISCUSSION AND PLAN: We will replace potassium today. We will initiate some tube feeds. This is a catastrophic injury to the brain. The patient does not have any chance of a good neurologic recovery. We are going to continue talking to the patient's family about how aggressive they would like for us to be moving forward. For the time being, supportive measures will be continued. I have increased her pressure support and backed off on her rate ever so slightly on mechanical ventilator in order to minimize dyssynchrony. Critical care time: 30 minutes. Job ID: [id number] MTDD
--- NOTE | 2018-10-03 11:48 | PDOC.PN ---
- Subjective Encounter Start Date: 10/03/18 Encounter Start Time: 11:47 Subjective: no new events.remains unresponsive.remains Vent dependent -: Cough reflex weak wi no gag reflex per RN - Objective MAR Reviewed: Yes Vital Signs & Weight: Vital Signs (12 hours) Temp Pulse Resp BP 10/03/18 11:29 136/81 10/03/18 10:53 114 H 10/03/18 08:00 100.4 F H 28 H 10/03/18 07:38 107 H 10/03/18 07:00 100.4 F H 10/03/18 06:08 148/79 H 10/03/18 06:00 30 H 10/03/18 04:00 99.6 F 34 H 10/03/18 02:13 110 H 10/03/18 02:00 35 H 10/03/18 00:03 139/78 10/03/18 00:00 31 H 10/02/18 23:56 99.6 F Weight Admit Weight 254 lb 13.67 oz Weight 257 lb 15.053 oz Most Recent Monitor Data Heart Rate from ECG 103 NIBP 156/86 NIBP BP-Mean 109 Respiration from ECG 33 SpO2 95 I&O: 10/02/18 10/03/18 10/04/18 06:59 06:59 06:59 Intake Total 3862 4041 Output Total 3710 3305 575 Balance 152 736 -575 Result Diagrams: 10/03/18 05:00 10/03/18 05:00 Additional Labs: Microbiology 09/30/18 14:15 Nasal swab Influenza Types A,B Direct EIA - Final 09/30/18 12:49 Urine bustillos catheter Urine Culture - Final 09/30/18 14:41 Venous blood - Right Arm Blood Culture - Preliminary NO GROWTH AT 48 HOURS 09/30/18 12:49 Venous blood - Right Hand Blood Culture - Preliminary NO GROWTH AT 48 HOURS Phys Exam - Physical Examination intubated.no response to painful stimulus HEENT: moist MMs, sclera anicteric, oral pharynx no lesions ETT Neck: no nodes, no JVD Respiratory: no wheezing, no rales, no rhonchi, clear to auscultation bilateral Cardiovascular: RRR, no significant murmur, no rub, irregular Gastrointestinal: soft, no distention, positive bowel sounds Musculoskeletal: no edema, pulses present pupils fixed.no corneal reflexes Skin: no rash Dx/Plan (1) ICH (intracerebral hemorrhage) Code(s): I61.9 - NONTRAUMATIC INTRACEREBRAL HEMORRHAGE, UNSPECIFIED Status: Acute (2) Acute respiratory failure requiring reintubation Code(s): J96.00 - ACUTE RESPIRATORY FAILURE, UNSP W HYPOXIA OR HYPERCAPNIA Status: Acute (3) Unresponsiveness Status: Acute (4) HTN (hypertension) Code(s): I10 - ESSENTIAL (PRIMARY) HYPERTENSION Status: Chronic (5) Microcytic hypochromic anemia Code(s): D50.9 - IRON DEFICIENCY ANEMIA, UNSPECIFIED Status: Chronic - Plan plan discussed w/ family, bustillos catheter, respiratory therapy, DVT proph w/SCDs Poor prognosis.cont supportive care -: vent management per PCCM -: HD stable. -: on Mannitol & cardene drip per Primary NS team -: IM team will follow * . Review of Systems - Review of Systems Other: can not be obtained as pt is obtunded - Medications/Allergies Allergies/Adverse Reactions: Allergies Allergy/AdvReac Type Severity Reaction Status Date / Time No Known Allergies Allergy Verified 09/30/18 18:08 Medications: Current Medications Bisacodyl (Dulcolax) 10 mg [place] DAILYPRN PRN PRN Reason: Constipation Clonidine (Wgoohuyx-Nho-3) 0.3 mg TD Q7D [facility] Last Admin: 10/01/18 15:00 Dose: 0.3 mg Enalaprilat (Vasotec) 1.25 mg SLOW IVP Q6HR [facility] Last Admin: 10/03/18 11:29 Dose: 1.25 mg Famotidine (Pepcid) 20 mg SLOW IVP Q12HR [facility] Last Admin: 10/03/18 08:58 Dose: 20 mg Hydralazine HCl (Apresoline) 10 mg SLOW IVP Q4H PRN PRN Reason: SBP>170 Last Admin: 10/02/18 13:01 Dose: 10 mg Fentanyl Citrate 2,000 mcg/ (Sodium Chloride) 100 mls @ 0 mls/hr IV INF PRN PRN Reason: Pain Nicardipine HCl 25 mg/ Sodium (Chloride) 250 mls @ 0 mls/hr IVPB INF PRN; Protocol PRN Reason: SBP > 160 or DBP > 90 Last Admin: 10/03/18 07:07 Dose: 250 mls Sodium Chloride (Normal Saline 0.9%) 1,000 mls @ 100 mls/hr IV .Q10H [facility] Last Admin: 10/03/18 07:09 Dose: 1,000 mls Potassium Chloride 40 meq/ (Sodium Chloride) 270 mls @ 135 mls/hr IVPB ASDIR PRN PRN Reason: FOR SERUM K+ 2.5 - 3.5 Potassium Chloride 40 meq/ (Device) 100 mls @ 50 mls/hr IVPB ASDIR PRN PRN Reason: FOR SERUM K+ 2.5 - 3.5 Magnesium Sulfate 1 gm/ Sodium (Chloride) 102 mls @ 102 mls/hr IV PRN PRN PRN Reason: MAG LEVEL 1.4 - 2.0 Magnesium Sulfate 2 gm/ Device 100 mls @ 100 mls/hr IVPB ASDIR PRN PRN Reason: MAGNESIUM < 1.4 Potassium Phosphate 9 mmol/ (Sodium Chloride) 103 mls @ 25.75 mls/hr IVPB ASDIR PRN PRN Reason: Phosphate 1.0-1.8 Potassium Phosphate 12 mmol/ (Sodium Chloride) 254 mls @ 63.5 mls/hr IV ASDIR PRN PRN Reason: Serum phosphate 0.5-0.9 Potassium Phosphate 15 mmol/ (Sodium Chloride) 255 mls @ 63.75 mls/hr IV ASDIR PRN PRN Reason: Serum Phos < 0.5 Miscellaneous Medication 1 (each/ Mannitol) 125 mls @ 250 mls/hr FS Q8HR [facility] Last Admin: 10/03/18 06:08 Dose: 125 mls Labetalol HCl (Normodyne) 10 mg SLOW IVP Q4H PRN PRN Reason: SBP Greater Than 180 Last Admin: 10/02/18 17:34 Dose: 10 mg Magnesium Oxide (Magnesium Oxide) 400 mg PO BIDPRN PRN PRN Reason: FOR SERUM MAG 1.4 - 2.0 Magnesium Oxide (Magnesium Oxide) 800 mg PO PRN PRN PRN Reason: FOR SERUM MAG < 1.4 Miscellaneous Medication (Phos-Nak) 1 pkt PO TIDPRN PRN PRN Reason: FOR PHOS LEVEL 1.0 - 1.8 Miscellaneous Medication (Phos-Nak) 2 pkt PO TIDPRN PRN PRN Reason: FOR PHOS LEVEL 0.5 - 1.0 Ccu Electrolyte (Replacement Protocol) 0 each FS PRN PRN PRN Reason: FOR ELECTROLYTE REPLACEMENT Ondansetron HCl (Zofran) 4 mg IVP Q6H PRN PRN Reason: Nausea/Vomiting Potassium Chloride (K-Dur) 40 meq PO ASDIR PRN PRN Reason: FOR SERUM K+ 2.5 - 3.5 Potassium Chloride (Klor-Con) 40 meq PER TUBE ASDIR PRN PRN Reason: FOR SERUM K+ 2.5-3.5 Last Admin: 10/03/18 06:16 Dose: 40 meq Potassium Chloride (K-Dur) 40 meq PO NOW [facility] Stop: 10/03/18 13:15 Last Admin: 10/03/18 11:29 Dose: 40 meq Sodium Chloride (Flush - Normal Saline) 10 ml IVF PRN PRN PRN Reason: Saline Flush
--- NOTE | 2018-10-03 11:52 | PRG ---
DATE OF SERVICE: 10/03/2018 SUBJECTIVE: Ms. Brice is a 67-year-old female, who had sustained a large left hemispheric intracerebral hemorrhage with intraventricular extension. Neurologically, she has a very poor neurologic exam with GCS score of 3T. I had a lengthy conversation with the family today as they have concerns about her prognosis and even raised questions regarding transfer. I do not believe this is a good idea given that she is critical and it would be a lateral transfer. I believe with other decision to keep her here at this point in time. We will engage Neurology to provide them with a second opinion. I believe this is not likely to be a survival injury. It is certainly a nonsurgical injury. In the meanwhile, we will continue with a maximal medical management. The family has made her DNR. Job ID: [id number]
[2018-10-03 13:06] LABS: Anion Gap 13 mmol/L (10-20); BUN (Urea Nitrogen) 12 mg/dL (9.8-20.1); Calc. Creatinine Clearance 176 mL/min (70-130); Calcium 8.3 mg/dL (7.8-10.44); Carbon Dioxide 21 mmol/L (23-31); Chloride 113 mmol/L (98-107); Estimated GFR-MDRD Greater than 90; Glucose 115 mg/dL (80-115); Potassium 3.8 mmol/L (3.5-5.1); Sodium 143 mmol/L (136-145)
--- NOTE | 2018-10-03 13:38 | PQF ---
ANDREW SINHA JAMES BRADLEY MD [id number] CLINICAL DOCUMENTATION IMPROVEMENT CLARIFICATION FORM: ICD-10 Updated PLEASE DO AN ADDENDUM TO THE PROGRESS NOTE WITH ANY DOCUMENTATION UPDATES OR ADDITIONS AND CARRY THROUGH TO DC SUMMARY. THANK YOU. DATE: 10-03-18 ATTN: DR. GARVEY Please exercise your independent, professional judgment in responding to the clarification form. Clinical indicators are provided on the bottom of this form for your review Please check appropriate box(s): [ ] Cerebral edema / Vasogenic edema [ ] Compression of brain Due to: [ ] Intracranial hematoma [ ] Acute cerebral infarction [ ] Traumatic brain injury [ ] Other diagnosis [ ] Unable to determine For continuity of documentation, please document condition throughout progress notes and discharge summary. Thank You. CLINICAL INDICATORS - SIGNS / SYMPTOMS / LABS H&P: *FOUND DOWN AT HOME - UNRESPONSIVE * [facility] - CT SCAN SHOWS EXTRAORDINARILY LARGE LEFT-SIDED INTRACEREBRAL HEMORRHAGE ENCOMPASSING MUCH OF THE FONTAL AND TEMPORAL LOBES - MIDLINE SHIFT W / DIFFUSE INTRAVENTRICULAR HEMORRHAGE. * PUPILS ARE EQUALLY ROUND, BUT NONREACTIVE TO LIGHT - BOTH MEASURE ROUGHLY 3MM IN SIZE. - @ 0000 CAT SCAN BRAIN: * LARGE INTRAPARENCHYMAL HEMORRHAGE IN LEFT MIDDLE CEREBRAL ARTERY. VENTRICULAR DILATION AND SHIFT OF MIDLINE STRUCTURES TO THE RIGHT ALL APPEAR STABLE. 09-30 @ 1246 CT BRAIN: LARGE LEFT BASAL GANGLIA TRANSPARENCHYMAL HEMATOMA W/ INTRAVENTRICULAR EXTENSION AND FINDING SUGGESTING DEVELOPING HYDROCEPHALUS. 10-01 (WHITE): VERY LARGE LEFT-SIDED INTRACEREBRAL AND INTRAVENTRICULAR HEMORRHAGE W/ ASSOCIATED MIDLINE SHIFT 10-03 (BRADING): ICH W/ MASS EFFECT, LARGE RISK FACTORS 09-30 (PONDER): TRAUMATIC LACERATION TO PERIORBITAL REGION ON THE RIGHT SIDE. LARGE LEFT-SIDED ICH 10-01 (BROOKE): FOUND DOWN AT HOME - SOME CONCERN THAT SHE COULD HAVE HIT HER HEAD FOLLOWING THE CVA 10-02 (BROOKE): MASSIVE ICH. PROBABLY HYPERTENSIVE. TREATMENTS: 10-01 (PONDER): STARTED ON MANNITOL IV H&P: INTUBATED IN FIELD BY EMS - ON VENT CPOE: CCU MONITORING SEIRAL BRAIN CT Neuro Checks Neurology / Neurosurgeon consult THANK YOU, SHANIQUA (This form is maintained as a part of the permanent medical record) 2014 [employer]. All Rights Reserved Shaniqua Rosa RN, BOOM [email or web address] MAYTE
[2018-10-03 21:34] LABS: Anion Gap 11 mmol/L (10-20); BUN (Urea Nitrogen) 13 mg/dL (9.8-20.1); Calc. Creatinine Clearance 170 mL/min (70-130); Calcium 8.1 mg/dL (7.8-10.44); Carbon Dioxide 22 mmol/L (23-31); Chloride 114 mmol/L (98-107); Estimated GFR-MDRD Greater than 90; Glucose 104 mg/dL (80-115); Potassium 3.6 mmol/L (3.5-5.1); Sodium 143 mmol/L (136-145)
[2018-10-04] MEDS: Enalaprilat Dihydrate 1.25 MG/ML VIAL SLOW IVP SCH ×4 (00:26→17:04)
[2018-10-04] MEDS: Labetalol HCl 100 MG/20 ML VIAL SLOW IVP PRN ×3 (01:17→21:06)
[2018-10-04] MEDS: Sodium Chloride 0.9% 1,000 ML IV SCH ×2 (05:18→13:10)
[2018-10-04 05:43] LABS: Anion Gap 11 mmol/L (10-20); BUN (Urea Nitrogen) 12 mg/dL (9.8-20.1); Calc. Creatinine Clearance 176 mL/min (70-130); Carbon Dioxide 22 mmol/L (23-31); Chloride 114 mmol/L (98-107); Estimated GFR-MDRD Greater than 90; Glucose 102 mg/dL (80-115); Potassium 3.5 mmol/L (3.5-5.1); Sodium 143 mmol/L (136-145)
[2018-10-04] MEDS: Admixture Fee 1 EACH in manNITOL 20% 125 ML FS SCH ×3 (06:05→21:07)
[2018-10-04 07:41] LABS: Actual Bicarbonate (HCO3a) 23.6 mEq/L (22-28); Base Excess (BEa) 0.1 mEq/L (-2.0 to +3.0); CO2 Tension 34.6 mmHg (35.0-45.0); Calcium, Ionized 1.14 mmol/L (1.12-1.30); Carboxyhemoglobin (COHb) 1.4 gm% (0.0-3.0); Hemoglobin (Hb) 11.8 g/dL (12.0-16.0); O2 Tension (PaO2) 75.9 mmHg (> 80.0); Potassium - ABG Lab 3.56 mmol/L (3.70-5.30); pH, Arterial 7.45 (7.35-7.45)
[2018-10-04 07:44] LABS: Puncture Site RRA
[2018-10-04] MEDS: Potassium Chloride 20 MEQ in Premix Bag 1 BAG IVPB SCH ×2 (07:56→09:57)
[2018-10-04] MEDS: Famotidine/PF 20 mg/2ml Vial SLOW IVP SCH ×2 (08:01→22:26)
--- NOTE | 2018-10-04 11:30 | PDOC.PN ---
- Subjective Encounter Start Date: 10/04/18 Encounter Start Time: 11:29 Subjective: No changes .remains unresponsive and obtundedw/o sedation - Objective MAR Reviewed: Yes Vital Signs & Weight: Vital Signs (12 hours) Temp Pulse Resp BP 10/04/18 11:00 101.1 F H 10/04/18 10:34 100 158/94 H 10/04/18 10:00 15 10/04/18 08:00 15 10/04/18 07:29 93 144/92 H 10/04/18 07:00 99.9 F H 10/04/18 06:05 171/94 H 10/04/18 06:00 15 10/04/18 04:00 100.0 F H 14 10/04/18 02:34 94 146/91 H 10/04/18 02:00 14 10/04/18 01:17 171/108 H 10/04/18 00:26 158/95 H 10/04/18 00:00 100.1 F H 14 Weight Admit Weight 254 lb 13.67 oz Weight 257 lb 15.053 oz Most Recent Monitor Data Heart Rate from ECG 104 NIBP 147/96 NIBP BP-Mean 113 Respiration from ECG 24 SpO2 96 I&O: 10/03/18 10/04/18 10/05/18 06:59 06:59 06:59 Intake Total 4041 1825 Output Total 3305 3015 560 Balance 736 -1190 -560 Result Diagrams: 10/03/18 05:00 10/04/18 05:11 Additional Labs: Microbiology 09/30/18 14:15 Nasal swab Influenza Types A,B Direct EIA - Final 09/30/18 12:49 Urine bustillos catheter Urine Culture - Final 09/30/18 14:41 Venous blood - Right Arm Blood Culture - Preliminary NO GROWTH AT 48 HOURS 09/30/18 12:49 Venous blood - Right Hand Blood Culture - Preliminary NO GROWTH AT 48 HOURS Laboratory Tests 09/30/18 10/01/18 10/01/18 19:06 05:17 12:29 Serum Osmolality 300 H 293 288 10/01/18 10/02/18 10/02/18 20:28 04:12 13:16 Serum Osmolality 298 H 299 H 296 H 10/02/18 10/03/18 10/03/18 21:05 05:00 12:39 Serum Osmolality 300 H 296 H 305 H 10/03/18 10/04/18 21:00 05:11 Serum Osmolality 303 H 303 H Phys Exam - Physical Examination Constitutional: NAD intubated HEENT: moist MMs, oral pharynx no lesions ETT.fixed pupils Neck: no nodes, no JVD Respiratory: no wheezing, no rales Cardiovascular: RRR, no significant murmur Gastrointestinal: soft, positive bowel sounds Musculoskeletal: no edema, pulses present non purposeful movements of shoulder and legs Skin: no rash Dx/Plan (1) ICH (intracerebral hemorrhage) Code(s): I61.9 - NONTRAUMATIC INTRACEREBRAL HEMORRHAGE, UNSPECIFIED Status: Acute (2) Acute respiratory failure requiring reintubation Code(s): J96.00 - ACUTE RESPIRATORY FAILURE, UNSP W HYPOXIA OR HYPERCAPNIA Status: Acute (3) Unresponsiveness Status: Acute (4) HTN (hypertension) Code(s): I10 - ESSENTIAL (PRIMARY) HYPERTENSION Status: Chronic (5) Microcytic hypochromic anemia Code(s): D50.9 - IRON DEFICIENCY ANEMIA, UNSPECIFIED Status: Chronic - Plan plan discussed w/ family, DVT proph w/SCDs Conservative management.NSfollowing -: No chnages.Family wants to discuss w neurology before reaching decision -: Poor Prognosis -: reduce IVF.On Mannitol perNS w Q8 BMP & osmolality check -: care discussed w family again at bedside * . Review of Systems - Review of Systems Other: can not be obtained due to obtunded and intubated state - Medications/Allergies Allergies/Adverse Reactions: Allergies Allergy/AdvReac Type Severity Reaction Status Date / Time No Known Allergies Allergy Verified 09/30/18 18:08 Medications: Current Medications Bisacodyl (Dulcolax) 10 mg SD DAILYPRN PRN PRN Reason: Constipation Clonidine ([place]-Wsu-7) 0.3 mg TD Q7D [facility] Last Admin: 10/01/18 15:00 Dose: 0.3 mg Enalaprilat (Vasotec) 1.25 mg SLOW IVP Q6HR [facility] Last Admin: 10/04/18 06:05 Dose: 1.25 mg Famotidine (Pepcid) 20 mg SLOW IVP Q12HR [facility] Last Admin: 10/04/18 08:01 Dose: 20 mg Hydralazine HCl (Apresoline) 10 mg SLOW IVP Q4H PRN PRN Reason: SBP>170 Last Admin: 10/02/18 13:01 Dose: 10 mg Fentanyl Citrate 2,000 mcg/ (Sodium Chloride) 100 mls @ 0 mls/hr IV INF PRN PRN Reason: Pain Nicardipine HCl 25 mg/ Sodium (Chloride) 250 mls @ 0 mls/hr IVPB INF PRN; Protocol PRN Reason: SBP > 160 or DBP > 90 Last Admin: 10/03/18 07:07 Dose: 250 mls Potassium Chloride 40 meq/ (Sodium Chloride) 270 mls @ 135 mls/hr IVPB ASDIR PRN PRN Reason: FOR SERUM K+ 2.5 - 3.5 Potassium Chloride 40 meq/ (Device) 100 mls @ 50 mls/hr IVPB ASDIR PRN PRN Reason: FOR SERUM K+ 2.5 - 3.5 Magnesium Sulfate 1 gm/ Sodium (Chloride) 102 mls @ 102 mls/hr IV PRN PRN PRN Reason: MAG LEVEL 1.4 - 2.0 Magnesium Sulfate 2 gm/ Device 100 mls @ 100 mls/hr IVPB ASDIR PRN PRN Reason: MAGNESIUM < 1.4 Potassium Phosphate 9 mmol/ (Sodium Chloride) 103 mls @ 25.75 mls/hr IVPB ASDIR PRN PRN Reason: Phosphate 1.0-1.8 Potassium Phosphate 12 mmol/ (Sodium Chloride) 254 mls @ 63.5 mls/hr IV ASDIR PRN PRN Reason: Serum phosphate 0.5-0.9 Potassium Phosphate 15 mmol/ (Sodium Chloride) 255 mls @ 63.75 mls/hr IV ASDIR PRN PRN Reason: Serum Phos < 0.5 Miscellaneous Medication 1 (each/ Mannitol) 125 mls @ 250 mls/hr FS Q8HR [facility] Last Admin: 10/04/18 06:05 Dose: 125 mls Potassium Chloride 20 meq/ (Device) 100 mls @ 50 mls/hr IVPB Q2H [facility] Stop: 10/04/18 11:59 Last Admin: 10/04/18 09:57 Dose: 100 mls Sodium Chloride (Normal Saline 0.9%) 1,000 mls @ 70 mls/hr IV .[id number] [facility] Labetalol HCl (Normodyne) 10 mg SLOW IVP Q4H PRN PRN Reason: SBP Greater Than 180 Last Admin: 10/04/18 01:17 Dose: 10 mg Magnesium Oxide (Magnesium Oxide) 400 mg PO BIDPRN PRN PRN Reason: FOR SERUM MAG 1.4 - 2.0 Magnesium Oxide (Magnesium Oxide) 800 mg PO PRN PRN PRN Reason: FOR SERUM MAG < 1.4 Miscellaneous Medication (Phos-Nak) 1 pkt PO TIDPRN PRN PRN Reason: FOR PHOS LEVEL 1.0 - 1.8 Miscellaneous Medication (Phos-Nak) 2 pkt PO TIDPRN PRN PRN Reason: FOR PHOS LEVEL 0.5 - 1.0 Ccu Electrolyte (Replacement Protocol) 0 each FS PRN PRN PRN Reason: FOR ELECTROLYTE REPLACEMENT Ondansetron HCl (Zofran) 4 mg IVP Q6H PRN PRN Reason: Nausea/Vomiting Potassium Chloride (K-Dur) 40 meq PO ASDIR PRN PRN Reason: FOR SERUM K+ 2.5 - 3.5 Potassium Chloride (Klor-Con) 40 meq PER TUBE ASDIR PRN PRN Reason: FOR SERUM K+ 2.5-3.5 Last Admin: 10/03/18 06:16 Dose: 40 meq Sodium Chloride (Flush - Normal Saline) 10 ml IVF PRN PRN PRN Reason: Saline Flush
[2018-10-04 13:26] LABS: Anion Gap 13 mmol/L (10-20); BUN (Urea Nitrogen) 12 mg/dL (9.8-20.1); Calc. Creatinine Clearance 182 mL/min (70-130); Calcium 8.4 mg/dL (7.8-10.44); Carbon Dioxide 21 mmol/L (23-31); Chloride 115 mmol/L (98-107); Estimated GFR-MDRD Greater than 90; Glucose 104 mg/dL (80-115); Potassium 4.1 mmol/L (3.5-5.1); Sodium 145 mmol/L (136-145)
--- NOTE | 2018-10-04 17:30 | PRG ---
DATE OF SERVICE: 10/04/2018 SUBJECTIVE: Ms. Brice remains mechanically ventilated. OBJECTIVE: VITAL SIGNS: Heart rate is 103, blood pressure 148/98, respiratory rate is 23. Intake and outputs negative 1190. LUNGS: Clear anteriorly. HEART: Regular rhythm. S1 and S2 are normal. ABDOMEN: Soft. EXTREMITIES: Without edema. LABORATORY DATA: White count 12.1, hemoglobin 11.9, platelets 239,000. Sodium 145, potassium 4.1, chloride 115, bicarbonate 21, BUN 12, creatinine 0.57. PH 7.45, CO2 of 34, PO2 of 75. Her was sitting at the bedside in a wheelchair. IMPRESSION: Large parenchymal brain hemorrhage with respiratory failure. PLAN: Continue supportive care. We could not get feel for whether the understood how grave her situation this is. We will continue supportive care. We discussed tracheostomy, PEG versus comfort care depending on family wishes. I have asked him to meet with the family and discuss all these issues and try to view them in accordance with what her wishes would be. Critical care time, 30 minutes. Job ID: [id number]
[2018-10-04 21:34] LABS: Anion Gap 13 mmol/L (10-20); BUN (Urea Nitrogen) 14 mg/dL (9.8-20.1); Calc. Creatinine Clearance 176 mL/min (70-130); Carbon Dioxide 20 mmol/L (23-31); Chloride 115 mmol/L (98-107); Sodium 144 mmol/L (136-145)
[2018-10-04 21:35] LABS: Calcium 8.2 mg/dL (7.8-10.44); Estimated GFR-MDRD Greater than 90; Glucose 130 mg/dL (80-115)
[2018-10-05] MEDS: Enalaprilat Dihydrate 1.25 MG/ML VIAL SLOW IVP SCH ×4 (00:30→17:25)
[2018-10-05] MEDS: Labetalol HCl 100 MG/20 ML VIAL SLOW IVP PRN (01:38)
[2018-10-05] MEDS: hydrALAZINE 20 MG/ML VIAL SLOW IVP PRN (02:14)
[2018-10-05] MEDS: Sodium Chloride 0.9% 1,000 ML IV SCH ×5 (02:41→18:53)
[2018-10-05 03:30] LABS: Anion Gap 15 mmol/L (10-20); BUN (Urea Nitrogen) 14 mg/dL (9.8-20.1); Calc. Creatinine Clearance 185 mL/min (70-130); Calcium 8.4 mg/dL (7.8-10.44); Carbon Dioxide 19 mmol/L (23-31); Chloride 115 mmol/L (98-107); Estimated GFR-MDRD Greater than 90; Glucose 143 mg/dL (80-115); Potassium 4.1 mmol/L (3.5-5.1); Sodium 145 mmol/L (136-145)
[2018-10-05] MEDS: niCARdipine HCl 25 MG in Sodium Chloride 0.9% 250 ML 240 ML IVPB PRN ×2 (03:41→09:41)
[2018-10-05] MEDS ORDERED: Metoprolol Tartrate 5 MG/5 ML VIAL IVP SCH (06:30)
[2018-10-05] MEDS: Admixture Fee 1 EACH in manNITOL 20% 125 ML FS SCH ×3 (07:09→20:58)
[2018-10-05] MEDS: Famotidine/PF 20 mg/2ml Vial SLOW IVP SCH ×2 (07:59→20:33)
[2018-10-05 08:03] LABS: Actual Bicarbonate (HCO3a) 18.5 mEq/L (22-28); Base Excess (BEa) -5.5 mEq/L (-2.0 to +3.0); CO2 Tension 31.5 mmHg (35.0-45.0); Calcium, Ionized 1.16 mmol/L (1.12-1.30); Carboxyhemoglobin (COHb) 1.3 gm% (0.0-3.0); Hemoglobin (Hb) 11.6 g/dL (12.0-16.0); Potassium - ABG Lab 3.88 mmol/L (3.70-5.30); pH, Arterial 7.39 (7.35-7.45)
[2018-10-05 08:07] LABS: ALV-art Gradient 598.625 (0-20); Puncture Site RRA
[2018-10-05] MEDS ORDERED: Acetaminophen 1,000 MG in Premix Bag 1 BAG IVPB PRN (10:24)
[2018-10-05] MEDS ORDERED: Amoxicillin/Potassium Clav 875 MG TAB PO SCH (11:15)
--- NOTE | 2018-10-05 12:02 | PRG ---
DATE OF SERVICE: 10/05/2018 SERVICE: Pulmonary Medicine. INTERVAL HISTORY: The patient is doing very poorly from a neurologic standpoint. She has made no progression over the past 48 hours. This morning, she started having some mucous plugging. She got bag lavage. Ultimately, she liberated some secretions and plugs and her oxygen saturations have improved/stabilized a little bit. She cannot provide any additional elements of the history. OBJECTIVE: VITAL SIGNS: T-max of 102, but otherwise afebrile. Pulse 109, blood pressure 122/79, respirations 43, saturation 94% on 75% FiO2 and a PEEP of 5. GENERAL: The patient is intubated. She is on no sedating medications, pain medications, or paralytics. HEENT: Normocephalic and atraumatic. Sclerae are white. Conjunctivae are pink. Oral mucosa is moist without lesions. LUNGS: Decent air entry. Rhonchi are extensive. No prolonged expiratory phase or wheezing is present. HEART: Normal rate. Regular. ABDOMEN: Soft, nontender, and nondistended. Bowel sounds are positive. MUSCULOSKELETAL: No cyanosis or clubbing. There is no pitting in the bilateral lower extremities. NEUROLOGIC: Her pupils are fixed. She has abnormal doll's eyes. Cold water calorics are abnormal. She does not have a gag. She does have a very small cough with deep suctioning. She over breathe the ventilator comfortably. With noxious stimuli to the bilateral upper and lower extremities, she does not have any movement whatsoever. She has an upgoing Babinski, which is quite subtle on the right lower extremity and she has a neutral Babinski on the left lower extremity. LABORATORY DATA: Sodium 145. Basic metabolic profile is otherwise unremarkable. Blood cultures x2, influenza A and B, urine culture unremarkable. ASSESSMENT: 1. Acute hypoxic respiratory failure. 2. Intracranial hemorrhage with mass effect, catastrophic. 3. Hypertension. DISCUSSION AND PLAN: I have made multiple modifications to the ventilator in order to maintain better oxygenation. The patient had a catastrophic brain injury. I have updated the family with what I see at bedside. They are going to try to come to a conclusion about what she would want for herself whether that would be tracheostomy and PEG tube placement in order to maintain her static encephalopathy, or transitioning over to comfort care only. Pulmonary will continue to follow while she remains in this location, but we should be looking for an answer in the next 24 to 48 hours. If they choose to be aggressive, we may need to perform a bronchoscopy to see if we can liberate some secretions. I will repeat a chest x-ray tomorrow morning, but give her laboratory holiday otherwise. Critical care time: 30 minutes. Job ID: [id number] MTDD
--- NOTE | 2018-10-05 12:45 | PDOC.PN ---
- Subjective Encounter Start Date: 10/05/18 Encounter Start Time: 12:44 Subjective: no chnages. remains unresponsive,intubated ,vent dependent - Objective MAR Reviewed: Yes Vital Signs & Weight: Vital Signs (12 hours) Temp Pulse Resp BP Pulse Ox 10/05/18 11:27 108 H 133/89 10/05/18 11:08 122/79 10/05/18 10:00 44 H 10/05/18 08:00 102.0 F H 48 H 10/05/18 07:47 123 H 147/78 H 10/05/18 07:35 96 10/05/18 07:10 168/98 H 10/05/18 02:24 105 H 168/98 H 10/05/18 02:14 100 172/111 H 10/05/18 02:00 16 10/05/18 01:38 100 172/111 H Weight Admit Weight 254 lb 13.67 oz Weight 262 lb 5.601 oz Most Recent Monitor Data Heart Rate from ECG 109 NIBP 122/79 NIBP BP-Mean 93 Respiration from ECG 43 SpO2 94 I&O: 10/04/18 10/05/18 10/06/18 06:59 06:59 06:59 Intake Total 1825 1740 Output Total 7763 3230 178 Balance -5068 -259 -214 Result Diagrams: 10/03/18 05:00 10/05/18 02:35 Additional Labs: Microbiology 09/30/18 14:15 Nasal swab Influenza Types A,B Direct EIA - Final 09/30/18 12:49 Urine bustillos catheter Urine Culture - Final 09/30/18 14:41 Venous blood - Right Arm Blood Culture - Preliminary NO GROWTH AT 48 HOURS 09/30/18 12:49 Venous blood - Right Hand Blood Culture - Preliminary NO GROWTH AT 48 HOURS Phys Exam - Physical Examination Constitutional: NAD unresponsive to noxious stimuli HEENT: moist MMs, oral pharynx no lesions ETT,tounge appears swollen Neck: no JVD Respiratory: no wheezing, no rales Cardiovascular: RRR Gastrointestinal: soft, no distention obtunded Dx/Plan (1) ICH (intracerebral hemorrhage) Code(s): I61.9 - NONTRAUMATIC INTRACEREBRAL HEMORRHAGE, UNSPECIFIED Status: Acute Comment: on Mannitol.Irreversible damage (2) Acute respiratory failure requiring reintubation Code(s): J96.00 - ACUTE RESPIRATORY FAILURE, UNSP W HYPOXIA OR HYPERCAPNIA Status: Acute (3) Unresponsiveness Status: Acute (4) HTN (hypertension) Code(s): I10 - ESSENTIAL (PRIMARY) HYPERTENSION Status: Chronic (5) Microcytic hypochromic anemia Code(s): D50.9 - IRON DEFICIENCY ANEMIA, UNSPECIFIED Status: Chronic - Plan respiratory therapy, DVT proph w/SCDs Prognosis remains poor without any chance for meningful recovery -: waiting for neurology recs as per family wishes. -: Vent support per PCCM. -: cont supportive care. * . Review of Systems - Review of Systems Other: can not be obtained as pt is obtunded - Medications/Allergies Allergies/Adverse Reactions: Allergies Allergy/AdvReac Type Severity Reaction Status Date / Time No Known Allergies Allergy Verified 09/30/18 18:08 Medications: Current Medications Amoxicillin/Clavulanate Potassium (Augmentin) 875 mg PO Q12HR [facility] Amoxicillin/Clavulanate Potassium (Augmentin) 875 mg PO 1115 [facility] Stop: 10/05/18 13:00 Bisacodyl (Dulcolax) 10 mg FL DAILYPRN PRN PRN Reason: Constipation Clonidine (Avpgpdjy-Brh-2) 0.3 mg TD Q7D [facility] Last Admin: 10/01/18 15:00 Dose: 0.3 mg Enalaprilat (Vasotec) 1.25 mg SLOW IVP Q6HR [facility] Last Admin: 10/05/18 11:08 Dose: 1.25 mg Famotidine (Pepcid) 20 mg SLOW IVP Q12HR [facility] Last Admin: 10/05/18 07:59 Dose: 20 mg Hydralazine HCl (Apresoline) 10 mg SLOW IVP Q4H PRN PRN Reason: SBP>170 Last Admin: 10/05/18 02:14 Dose: 10 mg Fentanyl Citrate 2,000 mcg/ (Sodium Chloride) 100 mls @ 0 mls/hr IV INF PRN PRN Reason: Pain Nicardipine HCl 25 mg/ Sodium (Chloride) 250 mls @ 0 mls/hr IVPB INF PRN; Protocol PRN Reason: SBP > 160 or DBP > 90 Last Admin: 10/05/18 09:41 Dose: 250 mls Potassium Chloride 40 meq/ (Sodium Chloride) 270 mls @ 135 mls/hr IVPB ASDIR PRN PRN Reason: FOR SERUM K+ 2.5 - 3.5 Potassium Chloride 40 meq/ (Device) 100 mls @ 50 mls/hr IVPB ASDIR PRN PRN Reason: FOR SERUM K+ 2.5 - 3.5 Magnesium Sulfate 1 gm/ Sodium (Chloride) 102 mls @ 102 mls/hr IV PRN PRN PRN Reason: MAG LEVEL 1.4 - 2.0 Magnesium Sulfate 2 gm/ Device 100 mls @ 100 mls/hr IVPB ASDIR PRN PRN Reason: MAGNESIUM < 1.4 Potassium Phosphate 9 mmol/ (Sodium Chloride) 103 mls @ 25.75 mls/hr IVPB ASDIR PRN PRN Reason: Phosphate 1.0-1.8 Potassium Phosphate 12 mmol/ (Sodium Chloride) 254 mls @ 63.5 mls/hr IV ASDIR PRN PRN Reason: Serum phosphate 0.5-0.9 Potassium Phosphate 15 mmol/ (Sodium Chloride) 255 mls @ 63.75 mls/hr IV ASDIR PRN PRN Reason: Serum Phos < 0.5 Miscellaneous Medication 1 (each/ Mannitol) 125 mls @ 250 mls/hr FS Q8HR [facility] Last Admin: 10/05/18 07:09 Dose: 125 mls Acetaminophen 1,000 mg/ Device 100 mls @ 400 mls/hr IVPB Q6H PRN PRN Reason: PAIN/FEVER Stop: 10/06/18 10:25 Sodium Chloride (Normal Saline 0.9%) 1,000 mls @ 100 mls/hr IV .Q10H [facility] Labetalol HCl (Normodyne) 10 mg SLOW IVP Q4H PRN PRN Reason: SBP Greater Than 180 Last Admin: 10/05/18 01:38 Dose: 10 mg Magnesium Oxide (Magnesium Oxide) 400 mg PO BIDPRN PRN PRN Reason: FOR SERUM MAG 1.4 - 2.0 Magnesium Oxide (Magnesium Oxide) 800 mg PO PRN PRN PRN Reason: FOR SERUM MAG < 1.4 Miscellaneous Medication (Phos-Nak) 1 pkt PO TIDPRN PRN PRN Reason: FOR PHOS LEVEL 1.0 - 1.8 Miscellaneous Medication (Phos-Nak) 2 pkt PO TIDPRN PRN PRN Reason: FOR PHOS LEVEL 0.5 - 1.0 Ccu Electrolyte (Replacement Protocol) 0 each FS PRN PRN PRN Reason: FOR ELECTROLYTE REPLACEMENT Ondansetron HCl (Zofran) 4 mg IVP Q6H PRN PRN Reason: Nausea/Vomiting Potassium Chloride (K-Dur) 40 meq PO ASDIR PRN PRN Reason: FOR SERUM K+ 2.5 - 3.5 Potassium Chloride (Klor-Con) 40 meq PER TUBE ASDIR PRN PRN Reason: FOR SERUM K+ 2.5-3.5 Last Admin: 10/03/18 06:16 Dose: 40 meq Sodium Chloride (Flush - Normal Saline) 10 ml IVF PRN PRN PRN Reason: Saline Flush
--- NOTE | 2018-10-05 15:53 | CT ---
NONCONTRAST HEAD CT: Date: 10/05/18 HISTORY: Follow-up intracranial hemorrhage. COMPARISON: 09/30/18. FINDINGS: Redemonstration of extensive intracranial hemorrhage. The largest focus of hemorrhage continues to be in the left frontotemporal region. Hematoma measures 3.2 x 7.2 cm (previously measuring 2.9 x 7.2 cm ). There is persistent edema of the left cerebrum with sulcal effacement. There is mass effect upon t he ventricular system. Subarachnoid blood and intraventricular blood is once again demonstrated. Ther e are interval evolutionary changes involving the left cerebrum, due to ischemia/infarction. There co ntinues to be left to right subfalcine herniation of approximately 1.3 cm. Calvarium is intact. Adequate aeration of sinuses and mastoid air cells. IMPRESSION: 1. Increasing intracranial hemorrhage. The hematoma in the left cerebrum has slightly increased. The re is also evidence of increased intraventricular blood. 2. Evolutionary changes involving the left cerebrum, presumed to be due to ischemia/infarction from mass effect from the aforementioned parenchymal hematoma. 3. Worsening subfalcine herniation. POS: [facility]
[2018-10-05] MEDS: Amoxicillin/Potassium Clav 875 MG TAB PO SCH (20:33)
--- NOTE | 2018-10-05 23:20 | CON ---
DATE OF CONSULTATION: 10/05/2018 TYPE OF CONSULTATION: Neurology. CONSULTING PHYSICIAN: Hospitalist Services. IMPRESSION: Massive left hemispheric hemorrhage with secondary shift and compression of the brainstem causing herniation. Despite this, at this point in time, she still has some residual brainstem reflexes. I have relayed this information to the family that the situation has deteriorated compared to onset and I would not expect her to last a great deal longer before her brainstem is compressed completely. HISTORY OF PRESENT ILLNESS: Ms. Herrmann is a 67-year-old black female who came in with symptoms of acute stroke. She was found to have left hemispheric hemorrhage. She was subsequently intubated and put in the ICU. She has failed to regain consciousness since her initial admission on the . Neurosurgery reported to the family that the situation was hopeless. No surgical intervention was undertaken. The family wanted a second opinion. PHYSICAL EXAMINATION: On exam, her blood pressure is 149/87, pulse 120, saturations 96%. She is orally intubated. Doll's head maneuver elicits some deviation of the left eye, but not the right. No spontaneous eyelid opening is present. No corneal response was noted. No peripheral pain response was noted. She does have a gag reflex removing the ET tube. Situation continues to decline and I would expect she will probably in the next few days. Job ID: [id number]
[2018-10-06 03:58] VITALS: BMI 35.3
[2018-10-06] MEDS: Enalaprilat Dihydrate 1.25 MG/ML VIAL SLOW IVP SCH ×4 (04:19→18:20)
[2018-10-06] MEDS: Sodium Chloride 0.9% 1,000 ML IV SCH ×2 (05:05→18:20)
[2018-10-06 06:24] LABS: ALT (SGPT) 36 U/L (8-55); AST (SGOT) 28 U/L (5-34); Albumin 2.6 g/dL (3.4-4.8); Alkaline Phosphatase 81 U/L (40-150); Bilirubin, Direct 0.4 mg/dL (0.1-0.3); Bilirubin, Total 0.7 mg/dL (0.2-1.2)
[2018-10-06] MEDS: Admixture Fee 1 EACH in manNITOL 20% 125 ML FS SCH ×4 (07:14→22:37)
--- NOTE | 2018-10-06 09:04 | RAD ---
CHEST 1 VIEW: HISTORY: Increasing O2 needs. COMPARISON: None. FINDINGS: Endotracheal tube tip below the level of the clavicles. There is a left lower lobe airspace opacity with air bronchograms. No acute osseous abnormality. IMPRESSION: Left lower lobe airspace opacity appears new and is concerning for infection. POS: [facility]
[2018-10-06] MEDS: Famotidine/PF 20 mg/2ml Vial SLOW IVP SCH ×2 (09:33→22:08)
[2018-10-06] MEDS: Amoxicillin/Potassium Clav 875 MG TAB PO SCH ×2 (09:33→22:11)
--- NOTE | 2018-10-06 09:43 | PRG ---
DATE OF SERVICE: 10/06/2018 SUBJECTIVE: She remains intubated on the vent, unresponsive. CT head done yesterday, shows increasing intracranial hemorrhage. Hematoma in the left cerebrum worsened. Evidence of increased blood in the intraventricular area. OBJECTIVE: VITAL SIGNS: Blood pressure is 152/80, pulse 113, saturations 98%, respiratory rate 29. CHEST: Bilateral rhonchi. CARDIAC: Normal S1, S2. No gallops. ABDOMEN: No masses. IMPRESSION: 1. Intracerebral hemorrhage. 2. Encephalopathy. PLAN: At this stage, she is clearly not weanable. Awaiting input from Neurosurgery to decide ongoing care. Maintain nutrition. Supportive care. One half hour critical care time. Job ID: [id number]
--- NOTE | 2018-10-06 17:08 | PDOC.PN ---
- Subjective Encounter Start Date: 10/06/18 Encounter Start Time: 09:10 Ms. Herrmann was seen today in follow-up of massive ICH. She is intubated, and non- verbal. Her is at the bedside. - Objective MAR Reviewed: Yes Vital Signs & Weight: Vital Signs (12 hours) Temp Pulse Resp BP Pulse Ox 10/06/18 16:00 25 H 10/06/18 14:49 112 H 133/80 10/06/18 14:00 21 H 10/06/18 12:05 141/84 H 10/06/18 12:00 99.7 F H 26 H 10/06/18 11:12 123 H 154/85 H 10/06/18 10:00 37 H 10/06/18 08:00 100.1 F H 39 H 96 10/06/18 07:08 111 H 130/88 10/06/18 06:00 21 H Weight Admit Weight 254 lb 13.67 oz Weight 253 lb 8.505 oz Most Recent Monitor Data Heart Rate from ECG 114 NIBP 157/94 NIBP BP-Mean 115 Respiration from ECG 35 SpO2 97 I&O: 10/05/18 10/06/18 10/07/18 06:59 06:59 06:59 Intake Total 1740 5093 Output Total 2215 2090 790 Balance -475 3003 -790 Result Diagrams: 10/03/18 05:00 10/05/18 02:35 Phys Exam - Physical Examination Respiratory: no wheezing, no rales, no rhonchi Cardiovascular: RRR, no significant murmur, no rub Gastrointestinal: soft, no distention, positive bowel sounds Musculoskeletal: no edema no spontaneous movement, no movement to deep pain corneal reflex abscent Dx/Plan (1) ICH (intracerebral hemorrhage) Code(s): I61.9 - NONTRAUMATIC INTRACEREBRAL HEMORRHAGE, UNSPECIFIED Status: Acute Comment: on Mannitol.Irreversible damage (2) Acute respiratory failure requiring reintubation Code(s): J96.00 - ACUTE RESPIRATORY FAILURE, UNSP W HYPOXIA OR HYPERCAPNIA Status: Acute (3) HTN (hypertension) Code(s): I10 - ESSENTIAL (PRIMARY) HYPERTENSION Status: Chronic - Plan * Patient was admitted with a massive ICH. She is ventilator dependent. Neurology assessment was noted. She is not expected to survive this admission * HTN- blood pressure is stable * Awaiting family input on how to proceed. .
[2018-10-07] MEDS: Enalaprilat Dihydrate 1.25 MG/ML VIAL SLOW IVP SCH ×4 (01:36→18:19)
[2018-10-07] MEDS: Sodium Chloride 0.9% 1,000 ML IV SCH ×2 (04:52→13:50)
--- NOTE | 2018-10-07 08:04 | PRG ---
DATE OF SERVICE: 10/07/2018 SUBJECTIVE: She remains intubated on the vent, unresponsive. Chest x-ray yesterday shows bilateral broad platelike atelectasis. OBJECTIVE: GENERAL: She remains unresponsive. HEENT: Pupils are 2 mm. VITAL SIGNS: Pulse 124, blood pressure 166/98. CHEST: Decreased breath sounds. Bilateral rhonchi. CARDIAC: Normal S1 and S2. No gallops. ABDOMEN: No masses. IMPRESSION: Massive hypertensive bleed, respiratory failure. Prognosis is grave. Awaiting further input from Neurosurgery regarding ongoing treatment plan. nutrition. One-half hour Critical Care time. Job ID: [id number]
[2018-10-07] MEDS: Admixture Fee 1 EACH in manNITOL 20% 125 ML FS SCH (08:28)
[2018-10-07] MEDS: Labetalol HCl 100 MG/20 ML VIAL SLOW IVP PRN ×2 (08:37→13:46)
[2018-10-07] MEDS: Amoxicillin/Potassium Clav 875 MG TAB PO SCH (08:44)
[2018-10-07] MEDS: Famotidine/PF 20 mg/2ml Vial SLOW IVP SCH (08:45)
--- NOTE | 2018-10-07 10:57 | PDOC.PN ---
- Subjective Encounter Start Date: 10/07/18 Encounter Start Time: 10:56 Ms. Brice was seen today in follow-up of ICH. She is intubated. She is non responsive. - Objective Resuscitation Status - Order Detail: 10/07/18 10:55 Resuscitation Status Routine Resuscitation Status: DNAR: NO Resuscitation Discussed with: Discussed with the patient's son JAYME Reviewed: Yes Vital Signs & Weight: Vital Signs (12 hours) Temp Pulse Resp BP Pulse Ox 10/07/18 10:50 110 H 179/98 H 10/07/18 10:00 101.3 F H 53 H 10/07/18 08:37 124 H 166/98 H 10/07/18 08:00 48 H 94 L 10/07/18 07:00 103.2 F H 10/07/18 06:53 124 H 166/98 H 10/07/18 06:12 149/100 H 10/07/18 06:00 41 H 10/07/18 04:00 100.0 F H 35 H 10/07/18 02:13 115 H 10/07/18 02:00 40 H 10/07/18 01:36 154/104 H 10/07/18 00:00 99.0 F 19 Weight Admit Weight 254 lb 13.67 oz Weight 119 lb 1.6 oz Most Recent Monitor Data Heart Rate from ECG 113 NIBP 171/105 NIBP BP-Mean 127 Respiration from ECG 50 SpO2 92 I&O: 10/06/18 10/07/18 10/08/18 06:59 06:59 06:59 Intake Total 5093 2972 Output Total 2090 2770 525 Balance 3003 202 -525 Result Diagrams: 10/03/18 05:00 10/05/18 02:35 Phys Exam - Physical Examination HEENT: PERRLA coarse breath sounds, and some rhonchi Cardiovascular: RRR, no significant murmur, no rub Gastrointestinal: soft, positive bowel sounds Musculoskeletal: edema present trace pedal edema Neurological: non-focal Dx/Plan (1) ICH (intracerebral hemorrhage) Code(s): I61.9 - NONTRAUMATIC INTRACEREBRAL HEMORRHAGE, UNSPECIFIED Status: Acute Comment: on Mannitol.Irreversible damage (2) Acute respiratory failure requiring reintubation Code(s): J96.00 - ACUTE RESPIRATORY FAILURE, UNSP W HYPOXIA OR HYPERCAPNIA Status: Acute (3) HTN (hypertension) Code(s): I10 - ESSENTIAL (PRIMARY) HYPERTENSION Status: Chronic - Plan * Large ICH- Awaiting the patient's to arrive. His son tells me he is planning on terminal extubation * HTN- blood pressure is elevated- will continue PRN Labetalol, and Hydralazine for now.
[2018-10-07] MEDS ORDERED: Lorazepam 2 MG/ML VIAL SLOW IVP PRN (11:00)
[2018-10-07] MEDS ORDERED: Morphine 2 MG/ML SYRINGE SLOW IVP PRN (11:24)
[2018-10-07 13:47] VITALS: BP 218/111
[2018-10-07 21:20] VITALS: TEMP 99
--- NOTE | 2018-10-08 19:07 | EKG ---
Test Reason : Blood Pressure : / mmHG Vent. Rate : 091 BPM Atrial Rate : 091 BPM P-R Int : 214 ms QRS Dur : 094 ms QT Int : 416 ms P-R-T Axes : 045 019 023 degrees QTc Int : 511 ms Poor data quality, interpretation may be adversely affected Sinus rhythm with 1st degree A-V block with Fusion complexes Minimal voltage criteria for LVH, may be normal variant Prolonged QT Abnormal ECG Confirmed by LIVIER OVIEDO, AVERY ([id number]), editor magazine MITLON GARCIA ([id number]) on 10/08/2018 7:06:26 PM Referred By: LIVIER Confirmed By:AVERY MAIER MD
--- NOTE | 2018-10-12 15:19 | DIS ---
DATE OF ADMISSION: 09/30/2018 DATE OF DISCHARGE: 10/07/2018 SUMMARY: Ms. Brice was a 67-year-old woman, who was admitted to [facility] on September 30, 2018, and ultimately on October 07, 2018. ADMISSION DIAGNOSES: Obtundation and intracerebral hemorrhage. She at no point had had any improvement in her neurologic status, the entire time that she was admitted to the ICU. Recommendations to the family immediately were conservative treatment only with noninvasive care. Consultations were ordered to the Hospitalist Service and Pulmonary Critical Care. She had a repeat brain CT imaging performed to evaluate the progression of hemorrhage, which progressed minimally, but was still devastating. No other diagnostic studies were ordered. The patient ultimately was extubated terminally on October 07 and she . Job ID: [id number]
== END 2018-10-07 22:48 | disposition expired | DRG 64 ==
LOC: ERS 12:38 → CCU 13:42
PROVIDERS: ADMIT Internal Medicine; ATTEND Internal Medicine
PROC: 5A1955Z Respiratory Ventilation, Greater than 96 Consecutive Hours (ICD-10-PCS; principal; 2018-09-30)
DX: I61.1 Nontraumatic intracerebral hemorrhage in hemisphere, cortical (principal); J96.01 Acute respiratory failure with hypoxia; G93.5 Compression of brain; G93.49 Other encephalopathy; Z51.5 Encounter for palliative care; Z66 Do not resuscitate; I61.5 Nontraumatic intracerebral hemorrhage, intraventricular; I10 Essential (primary) hypertension; D50.9 Iron deficiency anemia, unspecified; M32.9 Systemic lupus erythematosus, unspecified; Z98.84 Bariatric surgery status
CPT/HCPCS: 31500; 36415; 51702; 70450; 70496; 71045; 72125; 80048; 80053; 80076; 80306; 80307; 81003; 81015; 82010; 82140; 82550; 82805; 83605; 83690; 83735; 83880; 83930; 84100; 84146; 84443; 84484; 85025; 85379; 85610; 85730; 86593; 86780; 87040; 87086; 87804; 93005; 94002; 94003; 96365; 96366; 96367; 96368; 96376; 99213; G0463; J0131; J0360; J1953; J2150; J3010; J3480; J7050; J7799; S0028